=== PATIENT | male | born 1980 | race Caucasian/White ===

== ENCOUNTER 2022-12-31 15:00 | Outpatient (REF) | payer OTHER, SELFPAY ==
--- NOTE | ~2022-12-31 | XR_ITS ---
EXAMINATION: XR KNEE, LEFT CLINICAL INFORMATION: Left-sided Pain. COMPARISON: Left lower extremity 03/18/2008 TECHNIQUE: Four views of the left knee. FINDINGS: Bone mineral density is mildly heterogeneous involving the distal femur and the proximal tibia and fibula. No abnormal periosteal reaction. The femoral tibial and the patellofemoral joint is normal. There is no joint effusion. XR/XR knee LT 4V IMPRESSION: 1. No acute abnormality. 2. Heterogeneous bone mineral density involving the distal femur and proximal tibia and fibula. This is nonspecific. If pain persists consider follow-up bone scan and/or MRI.
--- NOTE | ~2022-12-31 | XR_ITS ---
EXAMINATION: XR HIP, LEFT CLINICAL INFORMATION: Pain COMPARISON: None available. TECHNIQUE: Two views of the left hip and one view of the pelvis. FINDINGS: Bone alignment is normal. No fracture or dislocation. Mild arthritis at both hip joints with small osteophytes. Normal soft tissues. XR/XR hip LT w PEL1V IMPRESSION: Mild left hip osteoarthritis.
[2022-12-31 16:39] LABS: Eosinophils Absolute Auto 0.1 X10*3/uL (0.0-0.4); Eosinophils Percent Auto 1.2 % (0-4); Hematocrit 26.8 % (42.0-52.0); PLT CLUMP 1; SCAN SMEAR FLAG 1
[2022-12-31 16:41] LABS: Basophils Absolute Auto 0.1 X10*3/uL (0.0-0.2); Basophils Percent Auto 1.7 % (0-2); Imm Gran Abs Auto 0.02 X10*3/uL (0.00-0.03); Imm Gran Pct Auto 0.3 % (0.0-0.4); Lymphocytes Absolute Auto 1.4 X10*3/uL (1.2-4.9); Lymphocytes Percent Auto 21.1 % (20-40); MANUAL DIFF FLAG SCAN; Mean Corpuscular HGB Conc 29.9 g/dl (31.0-36.0); Mean Corpuscular Hemoglobin 23.5 pg (27.0-33.0); Mean Corpuscular Volume 78.6 fL (80.0-98.0); Mean Platelet Volume 10.9 fL (9.4-12.4); Monocytes Absolute Auto 0.6 X10*3/uL (0.1-1.2); Monocytes Percent Auto 8.8 % (2-11); Neutrophils Absolute Auto 4.4 x10*3/uL (2.0-8.3); Neutrophils Percent Auto 66.9 % (45-73); Red Blood Count 3.41 X10*6/uL (4.60-5.80); Red Cell Distribution Width 17.5 % (11.0-16.0)
[2022-12-31 16:54] LABS: White Blood Count 6.6 X10*3/uL (4.8-10.8)
[2022-12-31 17:25] LABS: Platelet Count 75 X10*3/uL (160-400)
[2022-12-31 17:51] LABS: Alanine Aminotransferase 38 U/L (0-40); Albumin Level 3.4 g/dL (3.5-5.0); Alkaline Phosphatase 62 U/L (39-117); Anion Gap 21 (12-20); Aspartate Amino Transferase 109 U/L (5-37); Bilirubin Total 4.7 mg/dL (0.0-1.0); Blood Urea Nitrogen 11 mg/dL (9-16); Calcium 8.5 mg/dL (8.4-10.2); Carbon Dioxide 17 mmol/L (22-29); Chloride 98 mmol/L (96-108); Cholesterol 89 mg/dL; Estimated Glomerular Filt Rate > 60; Glucose Fasting 85 mg/dL (60-99); HDL Cholesterol 28 mg/dL; LDL Cholesterol Calculated 49 mg/dl; Potassium 3.7 mmol/L (3.3-5.1); Sodium 132 mmol/L (135-145); Total Protein 8.7 g/dL (6.5-8.0); Triglycerides 60 mg/dL
[2022-12-31 18:03] LABS: SLIDE REVIEW VERIFIED
[2022-12-31 18:22] LABS: Folate 9.7 ng/mL (> or = 4.0); TSH reflex Free T4 1.78 uIU/mL (0.32-4.0); Vitamin B12 > 2000 pg/mL (200-900); Vitamin D 25-OH Total 6.1 ng/mL (>30)
[2023-01-02 04:46] LABS: HBc Num1 0.13 S/CO (0.00-0.79); Hepatitis A Antibody IgM 0.22 Index (0-0.79); Hepatitis B Core Antibody Nonreactive (Nonreactive); Hepatitis B Surface Antigen Negative (Negative); ~HepC Num1 0.16 S/CO (0.00-0.79); ~Hepatitis A Antibody IgM Nonreactive (Nonreactive); ~Hepatitis B Surface Antibody NONREACTIVE (Nonreactive); ~Hepatitis C Antibody Nonreactive (Nonreactive)
[2023-01-06 13:34] LABS: Vitamin B1 <6 nmol/L (8-30)
== END 2022-12-31 15:01 | disposition home or self-care (01) ==
LOC: HO.HMGCX 15:00
PROVIDERS: PCP Internal Medicine; Visit Provider Internal Medicine
DX: M25.562 Pain in left knee (principal); M25.552 Pain in left hip; R26.81 Unsteadiness on feet; R17 Unspecified jaundice; R00.0 Tachycardia, unspecified; I10 Essential (primary) hypertension; G25.2 Other specified forms of tremor; F10.90 Alcohol use, unspecified, uncomplicated
CPT/HCPCS: 36415; 73502; 73564; 80053; 80061; 82306; 82607; 82746; 84425; 84443; 85025; 86704; 86706; 86709; 86803; 87340

== ENCOUNTER 2023-01-14 10:49 | Outpatient (REF) | payer OTHER, SELFPAY ==
--- NOTE | ~2023-01-14 | US_ITS ---
EXAMINATION: US ABDOMEN COMPLETE CLINICAL INFORMATION: Elevated liver enzymes. Alcoholism. Jaundice. Anemia.. COMPARISON: None available. TECHNIQUE: Real-time imaging of the abdominal viscera. FINDINGS: PANCREAS: Not well visualized ABDOMINAL AORTA: The proximal, mid, and distal segments are normal in caliber. INFERIOR VENA CAVA: Visualized portions are normal. LIVER: Liver echotexture is increased. The liver is slightly enlarged, right lobe measuring 18 cm in length. No focal hepatic lesion. There is no intrahepatic biliary duct dilatation seen. There is reversed hepatofugal flow seen in the main portal vein. GALLBLADDER: The gallbladder is normal in size. No gallstones. The gallbladder wall is minimally thickened measuring 4 mm. This may be related to liver disease. COMMON BILE DUCT: Normal in caliber measuring 0.3 cm in diameter. RIGHT KIDNEY: Normal. No hydronephrosis. No renal calculi or focal parenchymal lesions. The kidney measures 11 cm in maximum dimension. LEFT KIDNEY: Normal. No hydronephrosis. No renal calculi or focal parenchymal lesions. The kidney measures 11 cm in maximum dimension. SPLEEN: Normal. The spleen measures 10 cm in maximum dimension. There is reversed hepatofugal flow in the portal splenic confluence. FREE FLUID: None. US/US abdomen complete IMPRESSION: Echogenic liver. The liver is slightly enlarged. There is reversed hepatopedal pedal flow seen in the main portal vein and portal splenic confluence suggestive of portal hypertension. No biliary duct dilatation or focal liver lesion. No ascites. Mild gallbladder wall thickening. This may be related to liver disease. Limited visualization of the pancreas.
== END 2023-01-14 10:50 | disposition home or self-care (01) ==
LOC: HO.HMGCX 10:49
PROVIDERS: PCP Internal Medicine; Visit Provider Internal Medicine
DX: D50.9 Iron deficiency anemia, unspecified (principal); F10.90 Alcohol use, unspecified, uncomplicated; R17 Unspecified jaundice; R74.8 Abnormal levels of other serum enzymes
CPT/HCPCS: 76700

== ENCOUNTER 2023-01-27 18:22 | Emergency (ER) | payer OTHER, SELFPAY ==
--- NOTE | ~2023-01-27 | CT_ITS ---
EXAMINATION: CT HEAD AND FACIAL BONES WITHOUT CONTRAST CLINICAL INFORMATION: Status post fall with facial trauma. COMPARISON: None TECHNIQUE: Multiple axial images of the head and facial bones were obtained without the administration of intravenous contrast. Coronal and sagittal reformatted images were obtained. This CT examination was performed using dose optimization techniques as appropriate, variously including the following: *Automated exposure control *Adjustment of mA and/or kV according to patient size (this includes techniques or standardized protocols for targeted exams where dose is matched to indication/reason for exam; i.e. extremities or head) *Use of iterative reconstruction technique DLP: 713.60, 295.76 mGy-cm FINDINGS: Head: There is mild widening of the cortical sulci and associated ventriculomegaly. The lateral ventricles are symmetrical. The third and fourth ventricles are in their normal midline position. The basilar and prepontine cisterns are unremarkable. There is no acute intra or extracerebral abnormality. There is no mass effect or midline shift. Sections through the bony calvarium are unremarkable. Facial bones: The maxillary, ethmoid, sphenoid and frontal sinuses are clear. There are no air-fluid levels. The ostiomeatal complexes are patent and within normal limits. No osseous abnormalities are identified. The bony orbits and orbital contents are unremarkable. The visualized mastoid air cells are clear. Mild asymmetric mucosal thickening is seen in the right nasal canal. CT/CT head/brain wo IV con IMPRESSION: 1. No acute intracranial pathology. 2. No acute facial bone abnormality.
--- NOTE | ~2023-01-27 | CT_ITS ---
EXAMINATION: CT CERVICAL SPINE WITHOUT CONTRAST CLINICAL INFORMATION: Status post fall with neck pain. COMPARISON: None available. TECHNIQUE: Multiple axial images of the cervical spine were obtained without the demonstration of intravenous contrast. Coronal and sagittal or matted images were obtained. This CT examination was performed using dose optimization techniques as appropriate, variously including the following: *Automated exposure control *Adjustment of mA and/or kV according to patient size (this includes techniques or standardized protocols for targeted exams where dose is matched to indication/reason for exam; i.e. extremities or head) *Use of iterative reconstruction technique DLP: 410.98 mGy-cm FINDINGS: There is mild straightening of the normal cervical lordosis. Moderate degenerative disc disease is seen at C5-C6 and C6-C7 with mild disc space narrowing, moderate marginal osteophyte formation and bilateral neural foraminal narrowing. The odontoid process is intact with mild articulating degenerative changes. The facet joints are unremarkable. The spinous processes are intact. The cervical soft tissues are unremarkable. There is no lymphadenopathy. The thyroid gland is unremarkable. The visualized lung apices are clear. CT/CT cervical spine wo IV con IMPRESSION: 1. Mild straightening of the normal cervical lordosis may be secondary to positioning and/or muscle spasm. 2. Moderate degenerative disc disease at C5-C6 and C6-C7 without acute abnormality.
--- NOTE | ~2023-01-27 | CT_ITS ---
EXAMINATION: CT HEAD AND FACIAL BONES WITHOUT CONTRAST CLINICAL INFORMATION: Status post fall with facial trauma. COMPARISON: None TECHNIQUE: Multiple axial images of the head and facial bones were obtained without the administration of intravenous contrast. Coronal and sagittal reformatted images were obtained. This CT examination was performed using dose optimization techniques as appropriate, variously including the following: *Automated exposure control *Adjustment of mA and/or kV according to patient size (this includes techniques or standardized protocols for targeted exams where dose is matched to indication/reason for exam; i.e. extremities or head) *Use of iterative reconstruction technique DLP: 713.60, 295.76 mGy-cm FINDINGS: Head: There is mild widening of the cortical sulci and associated ventriculomegaly. The lateral ventricles are symmetrical. The third and fourth ventricles are in their normal midline position. The basilar and prepontine cisterns are unremarkable. There is no acute intra or extracerebral abnormality. There is no mass effect or midline shift. Sections through the bony calvarium are unremarkable. Facial bones: The maxillary, ethmoid, sphenoid and frontal sinuses are clear. There are no air-fluid levels. The ostiomeatal complexes are patent and within normal limits. No osseous abnormalities are identified. The bony orbits and orbital contents are unremarkable. The visualized mastoid air cells are clear. Mild asymmetric mucosal thickening is seen in the right nasal canal. CT/CT facial bones wo IV con IMPRESSION: 1. No acute intracranial pathology. 2. No acute facial bone abnormality.
--- NOTE | ~2023-01-27 | CT_ITS ---
EXAMINATION: CT CHEST, ABDOMEN, AND PELVIS WITHOUT CONTRAST CLINICAL INFORMATION: Fall. Question rib fractures and hip fracture. COMPARISON: None TECHNIQUE: Multidetector volumetric CT imaging of the chest, abdomen, and pelvis was obtained without oral or intravenous contrast. Axial MIP volume rendering provided. Sagittal and coronal reformatted images were obtained. This CT examination was performed using dose optimization techniques as appropriate, variously including the following: *Automated exposure control *Adjustment of mA and/or kV according to patient size (this includes techniques or standardized protocols for targeted exams where dose is matched to indication/reason for exam; i.e. extremities or head) *Use of iterative reconstruction technique DLP: 608 mGy-cm FINDINGS: Limited by lack of oral and intravenous contrast. LUNGS: The lungs are clear with no evidence of inflammation or nodules. MEDIASTINUM: 1.4 cm subcarinal lymph node (image 26, series 5). PLEURA: There is no pleural effusion. No pleural mass or thickening. CHEST WALL/AXILLA: Bilateral gynecomastia. No lymphadenopathy by size criteria. LIVER, GALLBLADDER, AND BILIARY TREE: Suspect mild fatty infiltration of liver. The liver appears unremarkable in size and shape. No focal hepatic lesion or biliary ductal dilatation is appreciated. Unremarkable appearance of the gallbladder. PANCREAS: Unremarkable SPLEEN: Unremarkable ADRENAL GLANDS: Unremarkable KIDNEYS AND URETERS: The kidneys appear unremarkable in size, shape, and attenuation. No hydronephrosis, hydroureter, or calculi seen. BLADDER: Unremarkable GASTROINTESTINAL TRACT/MESENTERY: The small and large bowel appear unremarkable. Nonspecific jaz mesentery. ABDOMINAL WALL: No significant hernia is appreciated. LYMPH NODES: No evidence of adenopathy by size criteria. VASCULAR: Question gastroesophageal varices, suboptimally evaluated on this noncontrast study. PELVIC VISCERA: Unremarkable OSSEOUS STRUCTURES: Unremarkable. CT/CT abdomen pelvis wo IV con IMPRESSION: No acute finding. No fracture or rib fracture identified. Question gastroesophageal varices, suboptimally evaluated on this noncontrast study. Bilateral gynecomastia. 1.4 cm subcarinal lymph node, nonspecific. Nonspecific jaz mesentery.
[2023-01-27 18:33] VITALS: BP 133/80; BP 162/98; PULSE 112; PULSE 116; RESP 20; TEMP 36.8; O2SAT 96; BMI 23.8
--- NOTE | 2023-01-27 18:41 | PC.NURSE ---
pt reports fall from standing and reports having trouble walking. pt was unable to get up. Bystander called EMS. Denies headstrike, denies LOC. No thinners.
--- NOTE | 2023-01-27 18:44 | ED.GENADULT ---
HPI - General Adult General Chief complaint: Fall Stated complaint: LLE/LUE/BACK PAIN,FALL, (AGE UNK) Time Seen by Provider: 01/27/23 18:33 Source: patient Mode of arrival: ambulatory Limitations: no limitations History of Present Illness HPI narrative: 42-year-old male with pmh of mutliple falls, chronic left sided pain/weakness, and chronic poor vision presents to the ED due to fall. patient states due to his chronic poor vision patient states he tripped and fell unto his face on the street. patient states due to chronic left sided pain/weakness it was hard for him to get back up which is his usual. patient denies having any chest pain, abdomina pain, or headache before falling. patient denies lost of consciousness. Patient states he was on the ground for 15 minutes Related Data Previous Rx's Medication Instructions Recorded metoprolol succinate 25 mg 12.5 mg PO DAILY #30 tabs 12/31/22 tablet,extended release 24 hr cholecalciferol (vitamin D3) 1,250 1,250 mcg PO QWEEK 3 months #13 01/04/23 mcg (50,000 unit) capsule caps ferrous fumarate 325 mg (106 mg 325 mg PO DAILY #90 tabs 01/04/23 iron) tablet naproxen 500 mg tablet 500 mg PO BID PRN pain 7 days #14 01/28/23 tabs Allergies Allergy/AdvReac Type Severity Reaction Status Date / Time SHRIMP Allergy Severe SWELLING Uncoded 12/31/22 14:13 shrimp Allergy Unknown facial Uncoded 12/31/22 14:13 swelling, rash Review of Systems Review of Systems: fall with headache and facial pain. Yes all other systems are reviewed and are negative [facility] Past Medical History Medical History (Updated 01/28/23 @ 01:15 by MARGARITA Ventura) Alcohol use disorder Coarse tremors Elevated liver enzymes Essential hypertension Jaundice Left hip pain Left knee pain Microcytic hypochromic anemia Polyarthralgia Serum total bilirubin elevated Sinus tachycardia Unstable gait Social History Social History Housing: Apartment Alcohol intake: current Patient Tobacco Use Status: Never used Tobacco Smoked in Last 30 Days: No e-Cigarette/Vaping Use: Never Used Use of substances other than those prescribed or required for medical reasons: No Advance Directives: No Advance Directives Information Provided: Yes service: No Current occupational status: unemployed Cognitive needs: No Hearing needs: No Vision needs: Yes Physical Exam ED Vital Signs: Vital Signs - 24 hr 01/27/23 18:33 01/27/23 23:26 Temperature 98.2 F 98.2 F Pulse Rate 116 H 115 H Respiratory Rate 20 17 Blood Pressure 133/80 127/75 Pulse Oximetry 96 95 Oxygen Delivery Method Room Air BMI result Body Mass Index 23.8 Const General: cooperative, healthy appearing, comfortable, no acute distress, well developed, alert, awake and Physically active Orientation/consciousness: oriented to person, oriented to place, oriented to time and patient oriented x3 HENPR Head: Yes normal to inspection, Yes No palpable skull fracture present, Yes normocephalic, Yes atraumatic and No abrasion Head images: 1. Positive for tenderness on palpation. 2. Positive for tenderness on palpation Eyes General: appearance normal, both eyes and all related structures Neck Neck: Yes normal visual inspection, Yes full ROM, Yes no lymphadenopathy, Yes no meningeal signs, Yes trachea midline, Yes supple, No anterior neck swelling and No tender Chest Chest palpation & inspection: normal inspection of the chest Chest/axillae images: 1. Positive for tenderness on palpation. Negative for crepitus or ecchymosis. Resp Effort & Inspection: normal respiratory effort and able to speak in complete sentences Auscultation: clear to auscultation bilaterally Cardio Jugular venous distension: no JVD Heart sounds: S1 normal heart sound present and S2 normal heart sound present GI Inspection: Yes normal to inspection and No abdominal wall ecchymosis Palpation (GI): Soft to palpation, not firm, nontender, no guarding and not rigid General: No CVA tenderness and Yes no CVA tenderness Back/Spine/Pelvis Back: no CVA tenderness, No CVA tenderness and No back tenderness Skin General skin exam: no rashes or lesions noted and elasticity normal Neuro Other: Negative for any neuro deficits General: oriented to person, oriented to place, oriented to time, patient oriented x3, gait normal, tone normal, moves all extremities, Normal light touch and pain sensation, no meningeal signs, no focal motor deficits and CN's II-XI intact bilaterally Extrem General: Yes normal to inspection and Yes full ROM Psych Appearance: grossly normal, well kempt and not disheveled Course Course Course Narrative: Fall was sent for imaging. Reevaluation(s) Reevaluation #1: Patient sleeping comfortably in bed. Images of CT scans normal. No need for medical workup. Patient mechanical fall. Patient to be discharged Time: 01:11 Medical Decision Making Medical Decision Making [facility] Narrative: 41-year-old male presents to the ED for fall. Patient has history of chronic poor vision which causes him to fall and chronic left-sided upper and lower weakness/pain. Patient is sent for imaging to rule out any traumatic injury. Negative any neuro deficits. Patient alert oriented x3. Patient is sleeping comfortable in bed. Differential Diagnosis Differential Diagnoses: The differential diagnosis associated with the presentation includes (Brain bleed, skull fracture, cervical spine fracture, facial fracture, hemothorax, pneumothorax, rib fractures, abdominal organ injury, hip fracture, hip dislocation, spinal fracture.) Admission/Observation Consideration of admission/observation: Escalation of care including admission/observation considered Independent Interpretation I performed an independent interpretation of an: Plain X-Ray and CT Scan Radiology Impression Discussion of test interpretation with radiology: I have reviewed the radiologist's reading. Prescription Management I considered prescription management with: Pain Medication Discharge Plan Discharge Clinical Impression: Fall, Contusion Patient Disposition: Home, Self-Care Instructions: Contusion in Adults (ED), Fall Prevention (ED) Additional Instructions: Please follow-up with your primary care provider. Return to the ED for any headache, dizziness, chest pain code is rhythmical rectal bleeding overwhelming mood, coughing up blood, bloody urine, or any other concerning symptoms. Prescriptions: New naproxen 500 mg tablet 500 mg PO BID PRN (Reason: pain) 7 Days Qty: 14 0RF No Action cholecalciferol (vitamin D3) 1,250 mcg (50,000 unit) capsule 1,250 mcg PO QWEEK 90 Days Qty: 13 0RF ferrous fumarate 325 mg (106 mg iron) tablet 325 mg PO DAILY Qty: 90 1RF metoprolol succinate 25 mg tablet extended release 24 hr 12.5 mg PO DAILY Qty: 30 2RF Stand Alone Forms: Work/School Release Print Language: Bermudian
[2023-01-27 23:26] VITALS: BP 127/75; PULSE 115; RESP 17; TEMP 36.8; O2SAT 95
== END 2023-01-28 02:06 | disposition home or self-care (01) ==
PROVIDERS: Emergency Provider Student in an Organized Health Care Education/Training Program
DX: S00.83XA Contusion of other part of head, initial encounter (principal); M54.2 Cervicalgia; R51.9 Headache, unspecified; R10.2 Pelvic and perineal pain; M54.6 Pain in thoracic spine; W01.10XA Fall on same level from slipping, tripping and stumbling with subsequent striking against unspecified object, initial encounter; Y93.9 Activity, unspecified; Y92.9 Unspecified place or not applicable; Y99.9 Unspecified external cause status
CPT/HCPCS: 70450; 70486; 71250; 72125; 74176; 99284

== ENCOUNTER 2023-02-12 18:49 | Emergency (ER) | payer OTHER, SELFPAY ==
--- NOTE | ~2023-02-12 | CT_ITS ---
EXAMINATION: CT HEAD WITHOUT CONTRAST CT CERVICAL SPINE WITHOUT CONTRAST CLINICAL INFORMATION: Fall. COMPARISON: CT head and cervical spine 01/27/2023. TECHNIQUE: Contiguous axial imaging was performed from the skull base to vertex without intravenous administration of contrast. Contiguous axial imaging was performed from the upper chest through the skull base without intravenous administration of contrast. Coronal and sagittal reformats were obtained at the acquisition workstation. This CT examination was performed using dose optimization techniques as appropriate, variously including the following: *Automated exposure control *Adjustment of mA and/or kV according to patient size (this includes techniques or standardized protocols for targeted exams where dose is matched to indication/reason for exam; i.e. extremities or head) *Use of iterative reconstruction technique DLP: 643 and 326 mGy-cm FINDINGS: Head: There is no evidence of acute intracranial hemorrhage or edematous territorial infarction. A few foci of hypoattenuation in the periventricular and deep white matter are consistent with mild microangiopathy. Fernandez-white matter differentiation is preserved. Proportional prominence of the ventricles and sulcal spaces. No evidence for obstructive hydrocephalus. No abnormal mass effect or midline shift. No extra-axial fluid collections. No acute soft tissue or osseous abnormalities. The mastoid air cells and paranasal sinuses are clear. Cervical Spine: Evaluation is limited by motion. The atlantooccipital and atlantoaxial articulations remain well aligned. Straightening of the normal cervical lordosis. Otherwise, there is anatomic alignment of the vertebral bodies and posterior elements. No evidence of acute fracture or subluxation. Mild to moderate multilevel cervical spondylosis. There is no prevertebral soft tissue swelling. The thyroid gland and remaining cervical soft tissues are normal in appearance. The lung apices demonstrate no abnormalities. CT/CT cervical spine wo IV con IMPRESSION: 1. No acute intracranial pathology. 2. Evaluation of the cervical spine is limited by motion. However, accounting for these limitations, no acute cervical fractures or malalignment are identified.
--- NOTE | 2023-02-12 18:58 | ECG_ITS ---
Test Reason : WEAKNESS Blood Pressure : / mmHG Vent. Rate : 082 BPM Atrial Rate : 082 BPM P-R Int : 160 ms QRS Dur : 084 ms QT Int : 378 ms P-R-T Axes : 053 022 027 degrees QTc Int : 441 ms Normal sinus rhythm Normal ECG When compared with ECG of 29-AUG-2018 18:24, No significant change was found Referred By: Cristina Sanders Electronically Signed By:MASON ALEMAN
--- NOTE | 2023-02-12 19:01 | ED.ALCOHOL ---
HPI - Alcohol General Chief Complaint: Fall Stated Complaint: Overdose Time Seen by Provider: 02/12/23 18:53 Source: patient Mode of arrival: ambulatory Limitations: no limitations History of Present Illness HPI narrative: Patient comes to the emergency room by ambulance. Bystanders found the patient on the floor, they gave him Narcan. Patient started waking up. Patient is awake, states that he did not use any drugs but admits to drinking alcohol heavily. Patient states that earlier today he fell, complaining of abrasions. Denies headache or neck pain. Related Data Previous Rx's Medication Instructions Recorded metoprolol succinate 25 mg 12.5 mg PO DAILY #30 tabs 12/31/22 tablet,extended release 24 hr cholecalciferol (vitamin D3) 1,250 1,250 mcg PO QWEEK 3 months #13 01/04/23 mcg (50,000 unit) capsule caps ferrous fumarate 325 mg (106 mg 325 mg PO DAILY #90 tabs 01/04/23 iron) tablet naproxen 500 mg tablet 500 mg PO BID PRN pain 7 days #14 01/28/23 tabs Allergies Allergy/AdvReac Type Severity Reaction Status Date / Time SHRIMP Allergy Severe SWELLING Uncoded 12/31/22 14:13 shrimp Allergy Unknown facial Uncoded 12/31/22 14:13 swelling, rash Review of Systems Review of Systems: Constitutional : No Weight loss, No Fever, No Chills, No Night Sweats, No Fatigue, No Malaise ENT/Mouth : No Hearing loss, No Ear Pain, No Nasal Congestion, No Sinus Pain, No Hoarseness, No sore throat, No Rhinorrhea, No Swallowing Difficulty Eyes: No Eye Pain, No Swelling, No Redness, No Foreign Body, No Discharge, No Vision Changes Cardiovascular : No Chest Pain, No SOB, No Dyspnea on Exertion, No Orthopnea, No Edema, No Palpitations Respiratory : No Cough, No Sputum, No Wheezing, No Smoke Exposure, No Dyspnea Gastrointestinal : No Nausea, No Vomiting, No Diarrhea, No Constipation, No abdominal Pain, No Hematochezia, No Melena Genitourinary : no irregular bleeding, No Dysuria, No Urinary Frequency, No Hematuria, No Urinary Incontinence, No Urgency, No Flank Pain, No Urinary Flow Changes, No Hesitancy Musculoskeletal : No joint pain, No Myalgias, No Joint Swelling Skin : Complaining of skin abrasions in the left elbow and left knee Neuro : No Weakness, No Numbness, No Paresthesias, No Loss of Consciousness, No Dizziness, No Headache Psych : No Anxiety/Panic, No Depression, No SI/HI/AH/VH, states he drank alcohol, denies drug use Heme/Lymph: No Bruising, No Bleeding,No Lymphadenopathy Endocrine : No Polyuria, No Polydipsia, No Temperature Intolerance PMF Past Medical History Medical History Alcohol use disorder Coarse tremors Elevated liver enzymes Essential hypertension Jaundice Left hip pain Left knee pain Microcytic hypochromic anemia Polyarthralgia Serum total bilirubin elevated Sinus tachycardia Unstable gait Social History Social History Housing: Apartment Alcohol intake: never Patient Tobacco Use Status: Never used Tobacco Smoked in Last 30 Days: No e-Cigarette/Vaping Use: Never Used Use of substances other than those prescribed or required for medical reasons: No Any prior treatment program specific to substance use: No Advance Directives: No Advance Directives Information Provided: Yes service: No Current occupational status: unemployed Cognitive needs: No Hearing needs: No Vision needs: Yes Physical Exam ED Vital Signs: Vital Signs - 24 hr 02/12/23 19:09 02/12/23 19:41 02/12/23 19:41 Temperature 98.6 F 98.6 F Pulse Rate 97 82 Respiratory Rate 18 18 Blood Pressure 138/90 H 116/63 Pulse Oximetry 100 Oxygen Delivery Method Room Air Room Air BMI result Body Mass Index 29.3 Const Other: Appearance: Alert. Oriented X3. No acute distress. Eyes: Pupils equal, round and reactive to light. ENT: Pharynx normal. Neck: Normal inspection. Neck supple. No lymph nodes noted. No crepitus CVS: Normal heart rate and rhythm. Pulses normal. Normal S1 and S2 Respiratory: No respiratory distress. Breath sounds normal. No Wheezing. No rales Abdomen: Soft and nontender. No rigidity. No distention. Skin: Skin warm and dry. Superficial abrasions to knees and elbows Extremities: No lower extremity edema. No Lacerations. No Rash Neuro: Oriented X 3. No motor deficit. No sensory deficit. Moving all extremities. No slurred speech. CN 2 through 12 grossly intact Psych: calm, cooperative, normal affect Course Course Course Narrative: -I was informed by the patient's nurse that when patient was brought to his room, patient told his nurse that he wanted to a hold of a knife and stab himself in the chest Medical Decision Making Medical Decision Making [facility] Narrative: -earlier today, patient said that he wants to stab himself in the chest. Patient is intoxicated, patient is on a [address]. To be reassessed when patient is clinically sober -CT scan of the head and neck do not show any acute abnormality -I discussed with the patient that his hemoglobin has been dropping gradually over the last few years. In 2018, hemoglobin was 13.2, in December of this year it was 8.0, today 7.9. Patient denies any black stools or rectal bleeding. Denies fatigue or shortness of breath with exertion. Patient denies vomiting blood. I discussed with the patient that he may have a bleeding ulcer, esophageal versus? Or a GI bleed, malignancy? Patient states that he absolutely refuses to have a digital rectal exam. Patient does not want to be treated for anemia. Patient states that he will discuss this further with his primary care physician and would be willing to get a colonoscopy. But this time, patient does not want to be treated -overall, patient is not symptomatic from the anemia. At this time, blood transfusion is not indicated. Also patient declined any further management or treatment for the anemia. -patient waiting to be seen by the care team -physician observation started at 21:10 Lab Data [facility] Lab Attestation statement: I reviewed the patient's lab results. 02/12/23 20:26 02/12/23 20:26 Labs: Lab Results 02/12/23 02/12/23 02/12/23 Range/Units 20:26 20:26 20:26 WBC 5.0 (4.8-10.8) X10*3/uL RBC 3.43 L (4.60-5.80) X10*6/uL Hgb 7.9 L (14.0-18.0) g/dl Hct 25.7 L (42.0-52.0) % MCV 74.9 L (80.0-98.0) fL MCH 23.0 L (27.0-33.0) pg MCHC 30.7 L (31.0-36.0) g/dl RDW 22.0 H (11.0-16.0) % Plt Count 121 L D (160-400) X10*3/uL MPV 8.7 L (9.4-12.4) fL Immature Gran % (Auto) 0.2 (0.0-0.4) % Neut % (Auto) 24.3 L (45-73) % Lymph % (Auto) 59.1 H (20-40) % [place] % (Auto) 10.4 (2-11) % Eos % (Auto) 3.6 (0-4) % Baso % (Auto) 2.4 H (0-2) % Lymph # (Auto) 3.0 (1.2-4.9) X10*3/uL [place] # (Auto) 0.5 (0.1-1.2) X10*3/uL Eos # (Auto) 0.2 (0.0-0.4) X10*3/uL Baso # (Auto) 0.1 (0.0-0.2) X10*3/uL Abs Immat Gran (auto) 0.01 (0.00-0.03) X10*3/uL Absolute Neuts (auto) 1.2 L (2.0-8.3) x10*3/uL Absolute Nucleated RBC 0.000 (0.0-0.012) X10*3/uL Nucleated RBC % (auto) 0.0 (0.0-0.2) /100WBC PT 19.6 H (10.0-13.1) SEC INR 1.7 H (0.9-1.1) Sodium 143 (135-145) mmol/L Potassium 3.5 (3.3-5.1) mmol/L Chloride 111 H (96-108) mmol/L Carbon Dioxide 25 (22-29) mmol/L Anion Gap 11 L (12-20) BUN 4 L (9-16) mg/dL Creatinine 0.79 (0.5-1.4) mg/dL Estim Creat Clear Calc 105.3 Estimated GFR > 60 Random Glucose 118 H (60-115) mg/dL Calcium 8.3 L (8.4-10.2) mg/dL Magnesium 1.6 (1.6-2.6) mg/dL Total Bilirubin 1.7 H (0.0-1.0) mg/dL Direct Bilirubin 0.8 H (0.0-0.5) mg/dL AST 90 H (5-37) U/L ALT 40 (0-40) U/L Alkaline Phosphatase 107 (39-117) U/L Troponin I High Sens (<3.5-35.0) ng/L Total Protein 8.1 H (6.5-8.0) g/dL Albumin 3.0 L (3.5-5.0) g/dL Ethyl Alcohol mg/dL 02/12/23 02/12/23 Range/Units 20:26 20:26 WBC (4.8-10.8) X10*3/uL RBC (4.60-5.80) X10*6/uL Hgb (14.0-18.0) g/dl Hct (42.0-52.0) % MCV (80.0-98.0) fL MCH (27.0-33.0) pg MCHC (31.0-36.0) g/dl RDW (11.0-16.0) % Plt Count (160-400) X10*3/uL MPV (9.4-12.4) fL Immature Gran % (Auto) (0.0-0.4) % Neut % (Auto) (45-73) % Lymph % (Auto) (20-40) % [place] % (Auto) (2-11) % Eos % (Auto) (0-4) % Baso % (Auto) (0-2) % Lymph # (Auto) (1.2-4.9) X10*3/uL [place] # (Auto) (0.1-1.2) X10*3/uL Eos # (Auto) (0.0-0.4) X10*3/uL Baso # (Auto) (0.0-0.2) X10*3/uL Abs Immat Gran (auto) (0.00-0.03) X10*3/uL Absolute Neuts (auto) (2.0-8.3) x10*3/uL Absolute Nucleated RBC (0.0-0.012) X10*3/uL Nucleated RBC % (auto) (0.0-0.2) /100WBC PT (10.0-13.1) SEC INR (0.9-1.1) Sodium (135-145) mmol/L Potassium (3.3-5.1) mmol/L Chloride (96-108) mmol/L Carbon Dioxide (22-29) mmol/L Anion Gap (12-20) BUN (9-16) mg/dL Creatinine (0.5-1.4) mg/dL Estim Creat Clear Calc Estimated GFR Random Glucose (60-115) mg/dL Calcium (8.4-10.2) mg/dL Magnesium (1.6-2.6) mg/dL Total Bilirubin (0.0-1.0) mg/dL Direct Bilirubin (0.0-0.5) mg/dL AST (5-37) U/L ALT (0-40) U/L Alkaline Phosphatase (39-117) U/L Troponin I High Sens 4.4 (<3.5-35.0) ng/L Total Protein (6.5-8.0) g/dL Albumin (3.5-5.0) g/dL Ethyl Alcohol 415 H* mg/dL Discharge Plan Discharge Clinical Impression: Alcohol intoxication, Suicidal ideation, Anemia Patient Disposition: Still a Patient Prescriptions: No Action cholecalciferol (vitamin D3) 1,250 mcg (50,000 unit) capsule 1,250 mcg PO QWEEK 90 Days Qty: 13 0RF ferrous fumarate 325 mg (106 mg iron) tablet 325 mg PO DAILY Qty: 90 1RF naproxen 500 mg tablet 500 mg PO BID PRN (Reason: pain) 7 Days Qty: 14 0RF metoprolol succinate 25 mg tablet extended release 24 hr 12.5 mg PO DAILY Qty: 30 2RF
[2023-02-12 19:09] VITALS: BP 138/90; BP 140/100; PULSE 84; PULSE 97; RESP 18; TEMP 37; O2SAT 100; O2SAT 98; BMI 29.3
[2023-02-12 19:41] VITALS: BP 116/63; PULSE 82; RESP 18; TEMP 37
--- NOTE | 2023-02-12 19:51 | PC.NURSE ---
Informed MD that pt is SI without a plan. pt states he is depressed and feels bad about how his family looks down at him. How they are so disappointed they are of him.
--- NOTE | 2023-02-12 19:53 | PC.NURSE ---
Pt at moment contracts for safety. Pt is close to the nurses station for close observation. Pt's items locked in locker for safety. Pt at the moment states he contracts for safety.
[2023-02-12 20:30] LABS: MANUAL DIFF FLAG NO
[2023-02-12 20:31] LABS: Basophils Absolute Auto 0.1 X10*3/uL (0.0-0.2); Basophils Percent Auto 2.4 % (0-2); Eosinophils Absolute Auto 0.2 X10*3/uL (0.0-0.4); Eosinophils Percent Auto 3.6 % (0-4); Hematocrit 25.7 % (42.0-52.0); Hemoglobin 7.9 g/dl (14.0-18.0); Imm Gran Abs Auto 0.01 X10*3/uL (0.00-0.03); Imm Gran Pct Auto 0.2 % (0.0-0.4); Lymphocytes Percent Auto 59.1 % (20-40); Mean Corpuscular HGB Conc 30.7 g/dl (31.0-36.0); Mean Corpuscular Volume 74.9 fL (80.0-98.0); Mean Platelet Volume 8.7 fL (9.4-12.4); Monocytes Absolute Auto 0.5 X10*3/uL (0.1-1.2); Monocytes Percent Auto 10.4 % (2-11); Neutrophils Absolute Auto 1.2 x10*3/uL (2.0-8.3); Neutrophils Percent Auto 24.3 % (45-73); Platelet Count 121 X10*3/uL (160-400); Red Blood Count 3.43 X10*6/uL (4.60-5.80)
[2023-02-12 20:37] LABS: INTERNATIONAL NORM RATIO 1.7 (0.9-1.1); Prothrombin Time 19.6 SEC (10.0-13.1)
[2023-02-12 20:49] LABS: Ethanol 415 mg/dL
[2023-02-12 20:51] LABS: Alanine Aminotransferase 40 U/L (0-40); Alkaline Phosphatase 107 U/L (39-117); Anion Gap 11 (12-20); Aspartate Amino Transferase 90 U/L (5-37); Bilirubin Direct 0.8 mg/dL (0.0-0.5); Bilirubin Total 1.7 mg/dL (0.0-1.0); Blood Urea Nitrogen 4 mg/dL (9-16); Calcium 8.3 mg/dL (8.4-10.2); Carbon Dioxide 25 mmol/L (22-29); Chloride 111 mmol/L (96-108); Creatinine Clr Calc Pharmacy 105.3; Estimated Glomerular Filt Rate > 60; Glucose Random 118 mg/dL (60-115); Magnesium 1.6 mg/dL (1.6-2.6); Potassium 3.5 mmol/L (3.3-5.1); Sodium 143 mmol/L (135-145); Total Protein 8.1 g/dL (6.5-8.0)
[2023-02-12 20:59] LABS: Troponin-I High Sensitivity 4.4 ng/L (<3.5-35.0)
[2023-02-12 21:35] LABS: Appearance Urine Clear; Color Urine Yellow; Glucose Urine UA Negative (Negative); Leukocyte Esterase Urine Negative (Negative); Nitrite Urine Negative (Negative); Specific Gravity - Urine <= 1.005 (1.005-1.025); Urine Blood Negative (Negative); Urine Ketones Negative (Negative); Urine Protein Negative (Neg-Trace)
[2023-02-12 21:40] LABS: Amphetamine Screen Urine Not Detected (Not Detect); Barbiturates, Urine Not Detected (Not Detect); Benzodiazepines Screen Urine Not Detected (Not Detect); Cannabinoid Screen Urine Not Detected (Not Detect); Cocaine Screen Urine Not Detected (Not Detect); Fentanyl, urine Not Detected (Not Detect); Opiate Screen Urine Not Detected (Not Detect); Phencyclidine Screen Urine Not Detected (Not Detect)
[2023-02-13 01:04] VITALS: BP 115/63; PULSE 75; RESP 18; TEMP 36.6; O2SAT 99
[2023-02-13 03:44] VITALS: RESP 18
[2023-02-13 05:45] VITALS: BP 120/74; PULSE 74; RESP 17; O2SAT 97
--- NOTE | 2023-02-13 08:01 | PC.NURSE ---
assumed care of this pt at 0800. pt previously in ed 15. pt brought over to POD via w/c by security. pt now in POD rm 1. pt's belongings in locker 1.
[2023-02-13 19:33] LABS: COVID-19 Test Negative (Negative); IDNOW Serial# 08D9AD1C
[2023-02-13 20:46] VITALS: BP 142/76; PULSE 85; RESP 20; TEMP 37.6; O2SAT 99
== END 2023-02-13 22:57 | disposition home or self-care (01) ==
PROVIDERS: Emergency Provider Emergency Medicine
DX: F10.129 Alcohol abuse with intoxication, unspecified (principal); R45.851 Suicidal ideations; D64.9 Anemia, unspecified; Z20.822 Contact with and (suspected) exposure to COVID-19
CPT/HCPCS: 36415; 70450; 72125; 80048; 80076; 80307; 81003; 83735; 84484; 85025; 85610; 87635; 93005; 99285; S9485

== ENCOUNTER 2023-12-24 08:20 | Outpatient (AMB) | payer OTHER, SELFPAY ==
--- NOTE | 2023-12-24 08:27 | A.OFFPC_ITS ---
Vital Signs 12/24/23 08:33 Height 5 ft 3 in Weight 144 lb BMI 25.5 BP 124/70 Blood Pressure Location Lt brachial Position Sitting Pulse 110 H Pulse Source Pulse Oximeter Pulse Oximetry (%) 97 Oxygen Delivery Method Room Air Intake Visit Reasons: Annual PE Intake Note: Pt is here today for his PE: Pt requesting referral for a INTERNATIONAL TRAVEL CONSULTANT and program group for his ETOH addiction Allergies SHRIMP Allergy (Severe, Uncoded 12/24/23 09:02) SWELLING shrimp Allergy (Unknown, Uncoded 12/24/23 09:02) facial swelling, rash Medication List - Last Reconciled 12/24/23 by Yissel Johnson MD No Known Home Meds Tobacco use date assessed: 12/31/22 Dental Screening Dental Screen Date: 12/24/23 Did you have a dental visit in the last 12 months?: No Was dental information given to patient?: No HPI Annual PE HPI Details 43-year-old male with history of alcohol abuse, microcytic hypochromic anemia, here today for a physical exam. He states that he has cut back on his alcohol intake, nowdrinks at least 2-3 bottles of Natty Daddy 2 to 3 times a week whenever he is able to afford it. He has been seeing a therapist, and was referred to a program to help with his alcoholism but patient did not want to stay as he states that he was mixed in with a group of drug addicts. [facility] Medical History (Updated 12/30/23 @ 02:33 by Yissel Johnson MD) Anxiety and depression Alcoholism Serum total bilirubin elevated Elevated liver enzymes Microcytic hypochromic anemia Coarse tremors Polyarthralgia Essential hypertension Surgical History (Updated 12/30/23 @ 01:46 by Yissel Johnson MD) No pertinent past surgical history Family History (Updated 12/30/23 @ 01:49 by Yissel Johnson MD) Sister Diabetes mellitus Social History Housing: Apartment Alcohol intake: never Patient Tobacco Use Status: Never used Tobacco e-Cigarette/Vaping Use: Never Used service: No Current occupational status: unemployed Cognitive needs: No Hearing needs: No Vision needs: Yes Questionnaire PHQ-9 Over the last 2 weeks, how often have you been bothered by any of the following problems? 1. Little interest or pleasure in doing things: several days 2. Feeling down, depressed, or hopeless: several days 3. Trouble falling or staying asleep, or sleeping too much: not at all 4. Feeling tired or having little energy: not at all 5. Poor appetite or overeating: not at all 6. Feeling bad about yourself - or that you are a failure or have let yourself or your family down: several days 7. Trouble concentrating on things, such as reading the newspaper or watching television: not at all 8. Moving or speaking so slowly that other people could have noticed. Or the opposite - being so fidgety or restless that you have been moving around a lot more than usual: not at all 9. Thoughts that you would be better off or of hurting yourself in some way: not at all Total score: 3 Depression Screening Interpretation: Positive (Currently sees therapist at [facility]) Depression Screening Follow-up: Existing condition, In treatment and Community Mental Health Worker F/U Depression Screening Done: Yes 48752 - PHQ-9 Billing: Yes Source: Developed by Drs. Osbaldo Dumont, Berenice Bowles, Ad Acosta and colleagues, with an educational ailyn from [employer]. Thrive Questionnaire Date Thrive assessed: 12/24/23 I am a: Patient What is your living situation today?: I have a steady place to live Within the past 12 months, did the food you bought not last and you didn't have the money to get more?: Never true Within the past 12 months, did you worry whether your food would run out before you got money to buy more?: Never true Do you have trouble paying for medicines?: No Do you have trouble getting transportation to medical appointments?: Yes Do you have trouble paying your heating and electricity bill?: No Do you have trouble taking care of your child, family member or friend?: No Do you have trouble with day-to-day activities such as bathing, preparing meals, shopping, managing finances, etc.?: Yes Are you currently unemployed and looking for a job?: No Are you interested in more education?: No Please select the resources that you would like help with: Transportation and Daily support THRIVE Score: 1 AUDIT C Alcohol Use Questionnaire (AUDIT-C) 1. How often do you have a drink containing alcohol?: 4 or more times a week 2. How many drinks containing alcohol do you have on a typical day when you are drinking?: 5 or 6 3. How often do you have six or more drinks on one occasion?: Daily or almost daily Total Score: 10 Score Reviewed/Action Taken: Yes (Referred to irrigation specialist) LEE-7 AMB Questionnaire LEE-7 Date LEE - 7 assessed: 12/24/23 Feeling nervous, anxious, or on edge: 1 = Several days Not being able to stop or control worryin = Several days Worrying too much about different things: 1 = Several days Trouble relaxin = Several days Being so restless that it is hard to sit still: 0 = Not at all Becoming easily annoyed or irritable: 2 = More than half the days Feeling afraid as if something awful might happen: 1 = Several days Total LEE-7 score (0-4 normal; 5-9 mild; 10-14 moderate; 15-21 severe): 7 Source: Developed by Drs. Osbaldo Dumont, Berenice Bowles, Ad Acosta and colleagues, with an educational ailyn from [employer]. LEE-7 Assessment Billing LEE-7 Assessment Tool: LEE-7 Assessment 83895 Review of Systems Const Denies fever(s), Reports frequent falls, Denies headache(s), Reports malaise and Reports poor appetite Eyes Reports no additional complaints ENT Denies dysphagia, Denies ear discharge, Denies headache(s) and Denies mouth lesions Card Denies chest pain, Reports rapid heart rate, Denies edema, Denies irregular heart rhythm, Reports lightheadedness (Occasional) and Reports dyspnea on exertion Resp Denies cough and Reports dyspnea on exertion GI Denies melena, Reports bloating, Denies constipation, Denies dysphagia, Denies heartburn and Denies diarrhea Reports no additional complaints Musc Reports abnormal gait, Reports myalgias, Reports arthralgias, Denies joint swelling and Reports stiffness Skin/Breast Denies rash Neuro Reports abnormal gait, Reports frequent falls and Denies headache(s) Psych Reports abnormal sleep pattern, Reports anxiety, Reports difficulty concentrating, Reports panic attacks, Denies homicidal ideation and Denies suicidal ideation Endo Reports no additional complaints [place]/Lymph Denies easy bleeding and Denies easy bruising Aller/Immun Reports no additional complaints Physical exam (Primary Care) Vital Signs: Last Vital Signs Pulse 110 H 12/24/23 08:33 BP 124/70 12/24/23 08:33 Pulse Ox 97 12/24/23 08:33 Oxygen Delivery Method Room Air 12/24/23 08:33 BMI result Body Mass Index 25.5 Tobacco/Smoking Status: Tobacco use Status Tobacco use date assessed 12/31/22 12/24/23 08:30 Patient Tobacco Use Status Never used Tobacco 12/24/23 08:30 e-Cigarette/Vaping Use Never Used 12/24/23 08:30 PHQ-9: PHQ-9 Score PHQ-9: Total score 3 12/24/23 09:58 Depression Screening Interpretation: Positive (Currently sees therapist at [facility]) Depression Screening Follow-up: Existing condition, In treatment and Community Mental Health Worker F/U Thrive Assessment: Date of Thrive Assessment Date Thrive assessed 12/24/23 12/24/23 08:55 Const Other: Awake alert oriented x3, accompanied by sister on this visit, ambulatory with date of cane General: no acute distress and alert Nutritional Appearance: average body habitus Orientation/consciousness: oriented to person and oriented to place [facility] Head: Yes normocephalic and Yes atraumatic Ears: hearing grossly normal bilaterally, external ears normal, TM's normal bilaterally and EAC's normal General nose exam: Normal external nose present and No nasal discharge present Face and sinus: Yes sinuses nontender and Yes face symmetric Mouth: Normal oral and palatal mucosa present, lip normal, tongue normal, oropharynx normal and moist mucous membranes Eyes Conjunctivae: conjunctival abnormal (Pale palpebral conjunctiva bilateral) and other Neck Neck: Yes full ROM, Yes no lymphadenopathy and Yes supple Thyroid: Thyroid normal Chest Chest palpation & inspection: normal inspection of the chest Resp Other: Clear to auscultation bilaterally Cardio Other: Tachycardic GI Other: Obese with slightly bloated abdomen, normal bowel sounds, nontender to palpation, no mass palpated Palpation (GI): Soft to palpation, nontender, no guarding and no masses Auscultation: Hyperactive bowel sounds present Back/Spine/Pelvis Back: back tenderness (Paraspinal muscles in the lumbar area, negative straight leg raising sign) Thoracic/Lumbar Spine: straight leg raise negative bilaterally Skin General skin exam: no rashes or lesions noted, no jaundice, no petechiae and no purpura Neuro General: oriented to person, oriented to place and no focal motor deficits Extrem General: Yes full ROM, Yes no joint enlargement, Yes no clubbing, cyanosis or edema and Yes no pedal edema Psych Appearance: grossly normal Mental Status: mental status grossly normal Speech and movement: Normal speech and movement present Attitude: cooperative Assessment and Plan Assessment & Plan (1) Annual visit for general adult medical examination with abnormal findings: Code(s): Z00.01 - Encounter for general adult medical examination with abnormal findings Plan: Will check appropriate labs. Strongly encouraged to abstain from any alcohol intake, referred to irrigation specialist done. Recommended dental visit every 6 months and regular eye exams, at least every 2 years. Instructed to do self- testicular exam check for any mass. Patient however refusing to get any vaccination (2) Alcoholism: Code(s): F10.20 - Alcohol dependence, uncomplicated Plan: Addiction medicine referral to [facility], Comprehensive metabolic panel vitamin B1, vitamin B12 folic acid and vitamin-D level ordered. (3) Microcytic hypochromic anemia: Code(s): D50.9 - Iron deficiency anemia, unspecified Plan: CBC, iron profile ordered (4) Elevated liver enzymes: Code(s): R74.8 - Abnormal levels of other serum enzymes Plan: Strongly encouraged to abstain from any alcohol intake (5) Anxiety and depression: Code(s): F41.9 - Anxiety disorder, unspecified; F32.A - Depression, unspecified Plan: Currently being seen by therapist at [facility], referred to our mental health counselor, Divya, for assistance in getting in to see a psychiatrist Orders: Orders Comprehensive [place]. Panel Fast 12/24/23 D50.9 - Iron deficiency anemia, unspecified, F10.20 - Alcohol dependence, uncomplicated, F10.90 - Alcohol use, unspecified, uncomplicated, R17 - Unspecified jaundice, R74.8 - Abnormal levels of other serum enzymes, Z00.01 - Encounter for general adult medical examination with abnormal findings Vitamin D 25-OH Total 12/24/23 D50.9 - Iron deficiency anemia, unspecified, F10.20 - Alcohol dependence, uncomplicated, F10.90 - Alcohol use, unspecified, uncomplicated, R17 - Unspecified jaundice, R74.8 - Abnormal levels of other serum enzymes, Z00.01 - Encounter for general adult medical examination with abnormal findings Vitamin B1 12/24/23 D50.9 - Iron deficiency anemia, unspecified, F10.20 - Alcohol dependence, uncomplicated, F10.90 - Alcohol use, unspecified, uncomplicated, R17 - Unspecified jaundice, R74.8 - Abnormal levels of other serum enzymes, Z00.01 - Encounter for general adult medical examination with abnormal findings Vitamin B12 and Folate 12/24/23 D50.9 - Iron deficiency anemia, unspecified, F10.20 - Alcohol dependence, uncomplicated, F10.90 - Alcohol use, unspecified, uncomplicated, R17 - Unspecified jaundice, R74.8 - Abnormal levels of other serum enzymes, Z00.01 - Encounter for general adult medical examination with abnormal findings Complete Blood Count Auto Diff 12/24/23 D50.9 - Iron deficiency anemia, unspecified, F10.20 - Alcohol dependence, uncomplicated, F10.90 - Alcohol use, unspecified, uncomplicated, R17 - Unspecified jaundice, R74.8 - Abnormal levels of other serum enzymes, Z00.01 - Encounter for general adult medical examination with abnormal findings IRON PROFILE 12/24/23 D50.9 - Iron deficiency anemia, unspecified, F10.20 - Alcohol dependence, uncomplicated, F10.90 - Alcohol use, unspecified, uncomplicated, R17 - Unspecified jaundice, R74.8 - Abnormal levels of other serum enzymes, Z00.01 - Encounter for general adult medical examination with abnormal findings Lipid Panel 12/24/23 D50.9 - Iron deficiency anemia, unspecified, F10.20 - Alcohol dependence, uncomplicated, F10.90 - Alcohol use, unspecified, uncomplicated, R17 - Unspecified jaundice, R74.8 - Abnormal levels of other serum enzymes, Z00.01 - Encounter for general adult medical examination with abnormal findings Coding Level of Care Code Est Pt Prev Care 40-64y(57827) Diagnoses Annual visit for general adult medical examination with abnormal findings Z00.01 Alcoholism F10.20 Microcytic hypochromic anemia D50.9 Elevated liver enzymes R74.8 Anxiety and depression F41.9; F32.A Additional Codes LEE-7 Assessment Billing - LEE-7 Assessment Tool: LEE-7 Assessment [id number] ([id number])
[2023-12-24 08:33] VITALS: BP 124/70; PULSE 110; O2SAT 97; BMI 25.5
== END 2023-12-24 11:01 | disposition home or self-care (01) ==
PROVIDERS: Visit Provider Internal Medicine
DX: Z00.00 Encounter for general adult medical examination without abnormal findings (principal); F10.20 Alcohol dependence, uncomplicated; D50.9 Iron deficiency anemia, unspecified; R74.8 Abnormal levels of other serum enzymes; F41.9 Anxiety disorder, unspecified; F32.A Depression, unspecified
CPT/HCPCS: 99396

== ENCOUNTER 2023-12-24 09:55 | Outpatient (REF) | payer OTHER, SELFPAY ==
[2023-12-24 12:51] LABS: MANUAL DIFF FLAG NO
[2023-12-24 12:57] LABS: Basophils Absolute Auto 0.1 X10*3/uL (0.0-0.2); Basophils Percent Auto 2.3 % (0-2); Eosinophils Absolute Auto 0.2 X10*3/uL (0.0-0.4); Eosinophils Percent Auto 2.7 % (0-4); Hematocrit 29.8 % (42.0-52.0); Hemoglobin 9.1 g/dl (14.0-18.0); Imm Gran Abs Auto 0.01 X10*3/uL (0.00-0.03); Imm Gran Pct Auto 0.2 % (0.0-0.4); Lymphocytes Absolute Auto 3.5 X10*3/uL (1.2-4.9); Lymphocytes Percent Auto 57.2 % (20-40); Mean Corpuscular HGB Conc 30.5 g/dl (31.0-36.0); Mean Corpuscular Hemoglobin 24.3 pg (27.0-33.0); Mean Corpuscular Volume 79.7 fL (80.0-98.0); Mean Platelet Volume 9.8 fL (9.4-12.4); Monocytes Absolute Auto 0.5 X10*3/uL (0.1-1.2); Monocytes Percent Auto 8.1 % (2-11); Neutrophils Absolute Auto 1.8 x10*3/uL (2.0-8.3); Neutrophils Percent Auto 29.5 % (45-73); Platelet Count 93 X10*3/uL (160-400); Red Blood Count 3.74 X10*6/uL (4.60-5.80); Red Cell Distribution Width 22.3 % (11.0-16.0); White Blood Count 6.2 X10*3/uL (4.8-10.8)
[2023-12-24 13:41] LABS: Alanine Aminotransferase 44 U/L (0-40); Albumin Level 3.1 g/dL (3.5-5.0); Alkaline Phosphatase 105 U/L (39-117); Anion Gap 12 (12-20); Aspartate Amino Transferase 134 U/L (5-37); Bilirubin Total 1.8 mg/dL (0.0-1.0); Blood Urea Nitrogen 7 mg/dL (9-16); Calcium 8.4 mg/dL (8.4-10.2); Carbon Dioxide 26 mmol/L (22-29); Chloride 107 mmol/L (96-108); Cholesterol 106 mg/dL (<200); Estimated Glomerular Filt Rate > 60; Glucose Fasting 99 mg/dL (60-99); HDL Cholesterol 40 mg/dL (>40); Iron 30 mcg/dL (45-160); LDL Cholesterol Calculated 56 mg/dL (<100); Percent Iron Saturation 9 % (15-50); Potassium 3.4 mmol/L (3.3-5.1); Sodium 142 mmol/L (135-145); Total Iron Binding Capacity 326 mcg/dL (228-428); Total Protein 8.6 g/dL (6.5-8.0); Triglycerides 51 mg/dL (<150); Unsaturated Iron Binding 296 ug/dL; Vitamin D 25-OH Total 6.3 ng/mL (>30)
[2023-12-24 13:52] LABS: Folate 6.7 ng/mL (> or = 4.0); Vitamin B12 1886 pg/mL (200-900)
[2023-12-29 10:53] LABS: Vitamin B1 6 nmol/L (8-30)
== END 2023-12-24 09:56 | disposition home or self-care (01) ==
LOC: HO.HMGCLDS 09:55
PROVIDERS: PCP Internal Medicine; Visit Provider Internal Medicine
DX: Z00.01 Encounter for general adult medical examination with abnormal findings (principal); F10.20 Alcohol dependence, uncomplicated; D50.9 Iron deficiency anemia, unspecified; R17 Unspecified jaundice; R74.8 Abnormal levels of other serum enzymes
CPT/HCPCS: 36415; 80053; 80061; 82306; 82607; 82746; 83540; 84425; 85025

== ENCOUNTER 2024-04-29 18:35 | Emergency (ER) | payer OTHER, SELFPAY ==
--- NOTE | ~2024-04-29 | XR_ITS ---
EXAMINATION: XR LUMBOSACRAL SPINE CLINICAL INFORMATION: Lower back pain COMPARISON: None available. TECHNIQUE: Three views of the lumbosacral spine. FINDINGS: The vertebral bodies and posterior elements are notable for generalized endplate spurring. No deformity. No focal bony lesion. The disc spaces are preserved and the vertebral alignment is normal. The paraspinal soft tissues are normal. XR/XR lumbar spine 2-3V IMPRESSION: No acute findings. Mild degenerative disc disease as above.
[2024-04-29 18:42] VITALS: BP 136/90; PULSE 82; O2SAT 98
--- NOTE | 2024-04-29 18:52 | ED_ITS ---
HPI - Back Pain/Injury General Chief Complaint: General Medical Stated Complaint: Back pain Time Seen by Provider: 04/29/24 19:44 Source: patient Mode of arrival: ambulatory Limitations: no limitations History of Present Illness ED Provider: Dr. Russ Renteria HPI Narrative: 44 year old male with multiple complaints past medical history of microcytic anemia polyarthralgia hypertension alcoholism anxiety and depression who presents emergency department complaining of left lower back pain rating down his leg with multiple falls patient admits to drinking and is very intoxicated on arrival MD elicited complaint: back pain Related Data Previous Rx's ?Medication ?Instructions ?Recorded cholecalciferol (vitamin D3) 1,250 1,250 mcg PO QWEEK 3 months #13 12/30/23 mcg (50,000 unit) capsule caps ferrous sulfate 325 mg (65 mg 325 mg PO DAILY #90 tabs 12/30/23 iron) tablet pyridoxine (vitamin B6) 100 mg 100 mg PO DAILY #30 tabs 12/30/23 tablet thiamine HCl (vitamin B1) 100 mg 100 mg PO DAILY #90 tabs 12/30/23 tablet prednisone 20 mg tablet 60 mg (3 x 20 mg) PO DAILY back 04/29/24 pain 5 days #15 tabs Allergies Allergy/AdvReac Type Severity Reaction Status Date / Time SHRIMP Allergy Severe SWELLING Uncoded 04/29/24 18:54 shrimp Allergy Unknown facial Uncoded 04/29/24 18:54 swelling, rash Review of Systems 2 Review of Systems: Review of systems: General: Patient denies any fever chills recent illness or falls Musculoskeletal: back pain no body aches or other injuries HEENT: denies headache, runny nose, ear pain Respiratory: denies shortness of breath, cough Cardiovascular: no chest pain or palpitations : denies dysuria, frequency Abdomen: no nausea vomiting denies abdominal pain Extremities: no swelling, no pain Skin: no diaphoresis Yes all other systems are reviewed and are negative PMFSH Past Medical History Medical History (Updated 04/29/24 @ 19:56 by Russ Renteria DO) Anxiety and depression Alcoholism Serum total bilirubin elevated Elevated liver enzymes Microcytic hypochromic anemia Coarse tremors Polyarthralgia Essential hypertension Surgical History (Updated 12/30/23 @ 01:46 by Yissel Johnson MD) No pertinent past surgical history Family History Family History (Updated 04/08/24 @ 01:49 by Yissel Johnson MD) Sister Diabetes mellitus Social History Social History Housing: Apartment Alcohol intake: never Patient Tobacco Use Status: Never used Tobacco e-Cigarette/Vaping Use: Never Used Advance Directives: No Advance Directives Information Provided: No service: No Current occupational status: unemployed Cognitive needs: No Hearing needs: No Vision needs: Yes Physical Exam 2 Vital Signs: Vital Signs: Last Vital Signs Temp 97.6 F 04/29/24 18:54 Pulse 81 04/29/24 18:54 Resp 18 04/29/24 18:54 BP 131/80 04/29/24 18:54 Pulse Ox 97 04/29/24 18:54 O2 Del Method Room Air 04/29/24 18:54 BMI result Body Mass Index 25.9 General: Well-appearing well-nourished in no signs of distress HEENT: Normocephalic atraumatic Neck: No signs of JVD, no masses no tenderness or lymphadenopathy Cardiovascular: Regular rate and rhythm Respiratory: Clear to auscultation bilaterally Abdomen: Soft nontender no masses he is able to squeeze his butt cheeks together Extremities: Normal pedal pulses no signs of edema Skin: Dry warm no rashes Back: No tenderness full ROM negative straight leg test normal reflexes bilateral lower extremity Course Course Course Narrative: This is a Rapid Medical Exam performed in triage by Phyllis Grove PA-C. Full HPI, ROS and PE to be performed by primary ED provider. 44 year-old M w/ PMHx anxiety, depression, polyarthralgia, HTN, ETOH abuse presenting to the ED via EMS c/o low back radiating down LLE, arm pain, & neck pain x few days. Admits to fall at home a few days ago, cannot remember incident. Reports recurrent falls. States when he is on the ground has difficulty getting up. denies hitting head when he fell. Denies drug use, admits to drinking ETOH last night, denies drinking today. Poor historian. PE: in wheelchair, no evidence of trauma. Plan: Labs, XR, GARCÍA Medical Decision Making Medical Decision Making MDM Narrative: I will treat the patient with prednisone and Tylenol send the patient home with muscle relaxants he will not be sober for over 12 hours. Patient be sent out to the [facility] [place], [place] Differential Diagnosis Differential Diagnoses: The differential diagnosis associated with the presentation includes Back pain lumbar radiculopathy alcohol intoxication electrolyte abnormality Admission/Observation Consideration of admission/observation: Escalation of care including admission/observation considered Lab Data 04/29/24 19:05 04/29/24 19:05 Labs: Lab Results 04/29/24 Range/Units 19:05 WBC 4.1 L (4.8-10.8) X10*3/uL RBC 3.63 L (4.60-5.80) X10*6/uL Hgb 9.4 L (14.0-18.0) g/dl Hct 29.1 L (42.0-52.0) % MCV 80.2 (80.0-98.0) fL MCH 25.9 L (27.0-33.0) pg MCHC 32.3 (31.0-36.0) g/dl RDW 19.8 H (11.0-16.0) % Plt Count 78 L (160-400) X10*3/uL MPV 9.6 (9.4-12.4) fL Immature Gran % (Auto) 0.2 (0.0-0.4) % Neut % (Auto) 44.9 L (45-73) % Lymph % (Auto) 43.9 H (20-40) % Russell % (Auto) 5.6 (2-11) % Eos % (Auto) 2.9 (0-4) % Baso % (Auto) 2.5 H (0-2) % Lymph # (Auto) 1.8 (1.2-4.9) X10*3/uL Russell # (Auto) 0.2 (0.1-1.2) X10*3/uL Eos # (Auto) 0.1 (0.0-0.4) X10*3/uL Baso # (Auto) 0.1 (0.0-0.2) X10*3/uL Abs Immat Gran (auto) 0.01 (0.00-0.03) X10*3/uL Absolute Neuts (auto) 1.8 L (2.0-8.3) x10*3/uL Absolute Nucleated RBC 0.000 (0.0-0.012) X10*3/uL Nucleated RBC % (auto) 0.0 (0.0-0.2) /100WBC Smear Tech's Comments VERIFIED Sodium 139 (135-145) mmol/L Potassium 4.0 (3.3-5.1) mmol/L Chloride 104 (96-108) mmol/L Carbon Dioxide 22 (22-29) mmol/L Anion Gap 17 (12-20) BUN 7 L (9-16) mg/dL Creatinine 0.73 (0.5-1.4) mg/dL Estim Creat Clear Calc 111.1 Estimated GFR > 60 Random Glucose 109 (60-115) mg/dL Calcium 8.5 (8.4-10.2) mg/dL Magnesium 1.4 L* (1.6-2.6) mg/dL Total Bilirubin 1.6 H (0.0-1.0) mg/dL Direct Bilirubin 0.9 H (0.0-0.5) mg/dL AST 143 H (5-37) U/L ALT 43 H (0-40) U/L Alkaline Phosphatase 82 (39-117) U/L Total Protein 9.1 H (6.5-8.0) g/dL Albumin 3.4 L (3.5-5.0) g/dL Ethyl Alcohol 413 H* mg/dL Discharge Plan Discharge Clinical Impression: Alcoholism, Back pain, Alcohol intoxication, Hypomagnesemia Patient Disposition: Still a Patient Instructions: Abuse of Alcohol (DC), Acute Low Back Pain (ED) Additional Instructions: You were seen today after police found you on the ground you were denying alcohol use liver blood alcohol was about 20 times legal limit. You complain of back pain you had x-rays and labs everything was normal. Please call follow up with your doctor police stopped drinking so much alcohol Prescriptions: New prednisone 20 mg tablet 60 mg PO DAILY 5 Days Qty: 15 0RF No Action thiamine HCl (vitamin B1) 100 mg tablet 100 mg PO DAILY Qty: 90 1RF cholecalciferol (vitamin D3) 1,250 mcg (50,000 unit) capsule 1,250 mcg PO QWEEK 90 Days Qty: 13 1RF pyridoxine (vitamin B6) 100 mg tablet 100 mg PO DAILY Qty: 30 0RF ferrous sulfate 325 mg (65 mg iron) tablet 325 mg PO DAILY Qty: 90 1RF Print Language: Albanian
[2024-04-29 18:54] VITALS: BP 131/80; PULSE 81; RESP 18; TEMP 36.4; O2SAT 97; BMI 25.9
[2024-04-29 19:11] LABS: Basophils Absolute Auto 0.1 X10*3/uL (0.0-0.2); Basophils Percent Auto 2.5 % (0-2); Eosinophils Absolute Auto 0.1 X10*3/uL (0.0-0.4); Eosinophils Percent Auto 2.9 % (0-4); Hematocrit 29.1 % (42.0-52.0); Hemoglobin 9.4 g/dl (14.0-18.0); Imm Gran Abs Auto 0.01 X10*3/uL (0.00-0.03); Imm Gran Pct Auto 0.2 % (0.0-0.4); Lymphocytes Absolute Auto 1.8 X10*3/uL (1.2-4.9); Lymphocytes Percent Auto 43.9 % (20-40); Mean Corpuscular HGB Conc 32.3 g/dl (31.0-36.0); Mean Corpuscular Hemoglobin 25.9 pg (27.0-33.0); Mean Corpuscular Volume 80.2 fL (80.0-98.0); Mean Platelet Volume 9.6 fL (9.4-12.4); Monocytes Absolute Auto 0.2 X10*3/uL (0.1-1.2); Monocytes Percent Auto 5.6 % (2-11); Neutrophils Absolute Auto 1.8 x10*3/uL (2.0-8.3); Neutrophils Percent Auto 44.9 % (45-73); Red Blood Count 3.63 X10*6/uL (4.60-5.80); Red Cell Distribution Width 19.8 % (11.0-16.0); White Blood Count 4.1 X10*3/uL (4.8-10.8)
[2024-04-29 19:15] LABS: Platelet Count 78 X10*3/uL (160-400)
[2024-04-29 19:17] LABS: MANUAL DIFF FLAG SCAN
[2024-04-29 19:21] LABS: Ethanol 413 mg/dL
[2024-04-29 19:27] LABS: Alanine Aminotransferase 43 U/L (0-40); Albumin Level 3.4 g/dL (3.5-5.0); Alkaline Phosphatase 82 U/L (39-117); Anion Gap 17 (12-20); Aspartate Amino Transferase 143 U/L (5-37); Bilirubin Direct 0.9 mg/dL (0.0-0.5); Bilirubin Total 1.6 mg/dL (0.0-1.0); Blood Urea Nitrogen 7 mg/dL (9-16); Calcium 8.5 mg/dL (8.4-10.2); Carbon Dioxide 22 mmol/L (22-29); Chloride 104 mmol/L (96-108); Creatinine Clr Calc Pharmacy 111.1; Estimated Glomerular Filt Rate > 60; Glucose Random 109 mg/dL (60-115); Magnesium 1.4 mg/dL (1.6-2.6); Sodium 139 mmol/L (135-145); Total Protein 9.1 g/dL (6.5-8.0)
[2024-04-29 19:35] LABS: SLIDE REVIEW VERIFIED
[2024-04-29] MEDS: Magnesium Sulfate/H2O 2 GM/50 ML PIGGYBACK IV (19:54)
[2024-04-29] MEDS: 0.9 % Sodium Chloride 1,000 ML 999 ML IV (19:54)
[2024-04-29] MEDS: Cyclobenzaprine HCl 5 MG TABLET PO (19:57)
[2024-04-29] MEDS: Acetaminophen 325 MG TABLET 650 MG PO (19:57)
[2024-04-29 20:00] VITALS: PULSE 83; RESP 20; O2SAT 98
[2024-04-29 20:08] VITALS: BP 116/80; PULSE 84; RESP 19; TEMP 36.6; O2SAT 98
[2024-04-29 20:53] LABS: Amphetamine Screen Urine Not Detected (Not Detect); Barbiturates, Urine Not Detected (Not Detect); Benzodiazepines Screen Urine Not Detected (Not Detect); Buprenorphine Scr Not Detected (Not Detect); Cannabinoid Screen Urine Not Detected (Not Detect); Cocaine Screen Urine Not Detected (Not Detect); Fentanyl, urine Not Detected (Not Detect); Methadone Screen, Urine Not Detected (Not Detect); Opiate Screen Urine Not Detected (Not Detect); Oxycodone Screen Urine Not Detected (Not Detect); Phencyclidine Screen Urine Not Detected (Not Detect)
--- NOTE | 2024-04-29 21:23 | PC.NURSE ---
At 2118, staff found an open natty daddy in the patient's possession that was stored in his belongings. The patient was agreeable to allowing staff to dispose of the open container and it's contents. Security called to bedside to assist with going through his remaining possessions for additional alcohol or drugs. Security found 5 unopenned cans of natty daddy which were collected, labeled and given to security for security/safe keeping.
[2024-04-29 22:49] VITALS: BP 123/77; PULSE 80; RESP 18; RESP 8; TEMP 36.6; O2SAT 97
[2024-04-30 05:08] VITALS: BP 128/71; PULSE 78; RESP 13; TEMP 36.7; O2SAT 96
[2024-04-30 07:10] VITALS: BP 126/81; PULSE 86; RESP 16; TEMP 36.7; O2SAT 96
== END 2024-04-30 07:11 | disposition home or self-care (01) ==
PROVIDERS: Physician Assistant; Emergency Provider Student in an Organized Health Care Education/Training Program; PCP Internal Medicine
DX: F10.129 Alcohol abuse with intoxication, unspecified (principal); Y90.8 Blood alcohol level of 240 mg/100 ml or more; E83.42 Hypomagnesemia; R11.2 Nausea with vomiting, unspecified; M54.50 Low back pain, unspecified; Z79.899 Other long term (current) drug therapy
CPT/HCPCS: 36415; 72100; 80048; 80076; 80307; 83735; 85025; 96361; 96374; 99285; J3475

== ENCOUNTER 2025-01-04 11:21 | Outpatient (AMB) | payer OTHER, SELFPAY ==
--- NOTE | 2025-01-04 11:48 | MHC.PC.OV ---
Vital Signs 01/04/25 11:52 Height 5 ft 5 in Weight 147 lb BMI 24.5 BP 138/74 Blood Pressure Location Lt brachial Position Sitting Respiration 16 Pulse 101 H Pulse Source Pulse Oximeter Temp 97.9 F Temp Source Oral Pulse Oximetry (%) 98 Oxygen Delivery Method Room Air Intake Visit Reasons: Annual PE Intake Note: Pt is here today for his PE Allergies SHRIMP Allergy (Severe, Uncoded 01/04/25 12:04) SWELLING shrimp Allergy (Unknown, Uncoded 01/04/25 12:04) facial swelling, rash Medication List - Last Reconciled 01/04/25 by Yissel Johnson MD No Known Home Meds Tobacco use date assessed: 01/04/25 Dental Screening Dental Screen Date: 12/24/23 HPI Annual PE HPI Details 44 year old male w/ past medical history of depression with anxiety, previously being seen at [facility], has polyarthralgia with history of frequent falls, seen several times a day ER, has hypertension, alcohol abuse, here today for physical exam. Patient very poor historian. Still continues to drink, averaging 3 or more beers a day. Currently not seeing a therapist anymore as he states that his therapist keeps changing. Patient states that he has difficulty walking due to pain in joints and weakness. [facility] Medical History (Updated 01/04/25 @ 12:39 by Yissel Johnson MD) Left anterior knee pain Anxiety and depression Alcoholism Serum total bilirubin elevated Elevated liver enzymes Microcytic hypochromic anemia Coarse tremors Polyarthralgia Essential hypertension Surgical History No pertinent past surgical history Family History Sister Diabetes mellitus Social History Housing: Apartment Alcohol intake: current Alcohol intake frequency: 3 or more drinks per day Alcohol type: beer Patient Tobacco Use Status: Never used Tobacco e-Cigarette/Vaping Use: Never Used service: No Current occupational status: unemployed Cognitive needs: No Hearing needs: No Vision needs: Yes Questionnaire PHQ-9 Over the last 2 weeks, how often have you been bothered by any of the following problems? 1. Little interest or pleasure in doing things: several days 2. Feeling down, depressed, or hopeless: several days 3. Trouble falling or staying asleep, or sleeping too much: not at all 4. Feeling tired or having little energy: not at all 5. Poor appetite or overeating: not at all 6. Feeling bad about yourself - or that you are a failure or have let yourself or your family down: several days 7. Trouble concentrating on things, such as reading the newspaper or watching television: not at all 8. Moving or speaking so slowly that other people could have noticed. Or the opposite - being so fidgety or restless that you have been moving around a lot more than usual: not at all 9. Thoughts that you would be better off or of hurting yourself in some way: not at all Total score: 3 Depression Screening Interpretation: Positive (Previously followed by therapist at [facility], but they keep changing therapist and now he does not want to go to [place] where they are offering, referred to Divya for assistance in getting appt with new therapist and psychiatry) Depression Screening Follow-up: Existing condition, In treatment and Community Mental Health Worker F/U Depression Screening Done: Yes 57044 - PHQ-9 Billing: Yes Source: Developed by Drs. Osbaldo Dumont, Berenice Bowles, Ad Acosta and colleagues, with an educational ailyn from [employer]. Thrive Questionnaire Date Thrive assessed: 01/04/25 I am a: Patient What is your living situation today?: I have a steady place to live Within the past 12 months, did the food you bought not last and you didn't have the money to get more?: Never true Within the past 12 months, did you worry whether your food would run out before you got money to buy more?: Never true Do you have trouble paying for medicines?: No Do you have trouble getting transportation to medical appointments?: Yes Do you have trouble paying your heating and electricity bill?: No Do you have trouble taking care of your child, family member or friend?: No Do you have trouble with day-to-day activities such as bathing, preparing meals, shopping, managing finances, etc.?: Yes Are you currently unemployed and looking for a job?: No Are you interested in more education?: No Please select the resources that you would like help with: Transportation and Daily support THRIVE Score: 1 AUDIT C Alcohol Use Questionnaire (AUDIT-C) 1. How often do you have a drink containing alcohol?: 4 or more times a week 2. How many drinks containing alcohol do you have on a typical day when you are drinking?: 3 or 4 3. How often do you have six or more drinks on one occasion?: Weekly Total Score: 8 Review of Systems Const Denies fever(s), Reports frequent falls, Denies headache(s), Reports malaise and Reports poor appetite Eyes Reports no additional complaints ENT Denies dysphagia, Denies ear discharge, Denies headache(s) and Denies mouth lesions Card Denies chest pain, Reports rapid heart rate, Denies edema, Denies irregular heart rhythm and Reports lightheadedness (Occasional) Resp Denies cough GI Denies melena, Reports bloating, Denies constipation, Denies dysphagia, Denies heartburn and Denies diarrhea Reports no additional complaints Musc Reports abnormal gait, Reports myalgias, Reports arthralgias, Denies joint swelling and Reports stiffness Skin/Breast Denies rash Neuro Reports abnormal gait, Reports frequent falls and Denies headache(s) Psych Reports abnormal sleep pattern, Reports anxiety, Reports difficulty concentrating, Reports panic attacks, Denies homicidal ideation and Denies suicidal ideation Endo Reports no additional complaints [place]/Lymph Denies easy bleeding and Denies easy bruising Aller/Immun Reports no additional complaints Physical exam (Primary Care) Vital Signs: Last Vital Signs Temp 97.9 F 01/04/25 11:52 Pulse 101 H 01/04/25 11:52 Resp 16 01/04/25 11:52 BP 138/74 01/04/25 11:52 Pulse Ox 98 01/04/25 11:52 Oxygen Delivery Method Room Air 01/04/25 11:52 BMI result Body Mass Index 24.5 Tobacco/Smoking Status: Tobacco use Status Tobacco use date assessed 01/04/25 01/04/25 11:59 Patient Tobacco Use Status Never used Tobacco 01/04/25 11:49 e-Cigarette/Vaping Use Never Used 01/04/25 11:49 PHQ-9: PHQ-9 Score PHQ-9: Total score 3 01/17/25 15:57 Depression Screening Interpretation: Positive (Previously followed by therapist at [facility], but they keep changing therapist and now he does not want to go to [place] where they are offering, referred to Divya for assistance in getting appt with new therapist and psychiatry) Depression Screening Follow-up: Existing condition, In treatment and Community Mental Health Worker F/U Thrive Assessment: Date of Thrive Assessment Date Thrive assessed 01/04/25 01/17/25 15:57 Advance Care Planning discussion: Completed/Scanned Date of discussion: 01/04/25 Who was present: Patient and sister Forms completed: Health Care Proxy Time spent: 16-45 minutes Actual minutes spent: 5 Const Other: Awake alert oriented x3, accompanied by sister on this visit, ambulatory with date of cane General: no acute distress and alert Nutritional Appearance: average body habitus Orientation/consciousness: oriented to person and oriented to place HENMT Head: Yes normocephalic and Yes atraumatic Ears: hearing grossly normal bilaterally, external ears normal, TM's normal bilaterally and EAC's normal General nose exam: Normal external nose present Face and sinus: Yes face symmetric Mouth: Normal oral and palatal mucosa present, oropharynx normal and moist mucous membranes Eyes Eyelids: Yes eyelid abnormality (External hordeolum right upper lid) Conjunctivae: conjunctival abnormal (Pale palpebral conjunctiva bilateral) and other Neck Neck: Yes full ROM, Yes no lymphadenopathy and Yes supple Thyroid: Thyroid normal Chest Chest palpation & inspection: normal inspection of the chest Resp Other: Clear to auscultation bilaterally Cardio Other: Tachycardic GI Other: Obese with slightly bloated abdomen, normal bowel sounds, nontender to palpation, no mass palpated Palpation (GI): Soft to palpation, nontender, no guarding and no masses Auscultation: Hyperactive bowel sounds present Back/Spine/Pelvis Back: back tenderness (Paraspinal muscles in the lumbar area, negative straight leg raising sign) Thoracic/Lumbar Spine: straight leg raise negative bilaterally Skin General skin exam: no rashes or lesions noted, no jaundice, no petechiae and no purpura Neuro General: oriented to person, oriented to place and no focal motor deficits Extrem General: Yes full ROM, Yes no joint enlargement, Yes no clubbing, cyanosis or edema and Yes no pedal edema Psych Appearance: grossly normal Mental Status: mental status grossly normal Speech and movement: Normal speech and movement present Attitude: cooperative Coding Level of Care Code Est Pt Prev Care 40-64y(70429) Diagnoses Annual visit for general adult medical examination with abnormal findings Z00.01 Elevated liver enzymes R74.8 Serum total bilirubin elevated R17 Alcoholism F10.20 Essential hypertension I10 Microcytic hypochromic anemia D50.9 Anxiety and depression F41.9; F32.A Left anterior knee pain M25.562 Hordeolum externum of right upper eyelid H00.011 Eyelid: upper Laterality: right Advanced directives, counseling/discussion Z71.89 Additional Codes PHQ-9 - 61081 - PHQ-9 Billing: Yes ([id number]) Vital Signs *Quality* - Advance Care Planning discussion: Completed/Scanned ([id number]) Vital Signs *Quality* - Time spent: 16-45 minutes ([id number]) Assessment & Plan Assessment & Plan (1) Annual visit for general adult medical examination with abnormal findings: Code(s): Z00.01 - Encounter for general adult medical examination with abnormal findings Plan: Will check appropriate labs. Recommended dental visit every 6 months and regular eye exams, at least every 2 years. Encouraged to alcohol intake referred to addiction Medicine. Reinforced importance of following a healthy diet. Patient declined all recommended vaccines. Referred to GI for his initial screening colonoscopy and evaluation of elevated liver enzymes and bilirubin levels (2) Elevated liver enzymes: Code(s): R74.8 - Abnormal levels of other serum enzymes Category: Medical Plan: History of elevated liver enzymes in the past, slightly due to alcohol intake. Comprehensive metabolic panel ordered, referred to addiction Medicine Clinic, abdominal ultrasound ordered (3) Serum total bilirubin elevated: Code(s): R17 - Unspecified jaundice Category: Medical Plan: Comprehensive metabolic panel ordered and abdominal ultrasound ordered (4) Alcoholism: Code(s): F10.20 - Alcohol dependence, uncomplicated Category: Medical Plan: Referred to addiction Medicine, patient agreeable to referral, ordered to check CBC, vitamin B12, folic acid, vitamin B1 and B6, vitamin-D, iron profile, comprehensive metabolic panel (5) Essential hypertension: Code(s): I10 - Essential (primary) hypertension Category: Medical Plan: Strongly advised to cut back on alcohol or stops alcohol intake altogether. Blood pressure today within acceptable limits. (6) Microcytic hypochromic anemia: Code(s): D50.9 - Iron deficiency anemia, unspecified Category: Medical Plan: Ordered CBC with iron profile (7) Anxiety and depression: Code(s): F41.9 - Anxiety disorder, unspecified; F32.A - Depression, unspecified Category: Medical Plan: Referred to our mental health counselor for assistance in getting seen by new therapist and Psychiatry, patient does not want to go to [facility] (8) Left anterior knee pain: Code(s): M25.562 - Pain in left knee Category: Medical Plan: X-ray left knee ordered (9) Microcytic hypochromic anemia: Code(s): D50.9 - Iron deficiency anemia, unspecified Category: Medical Plan: Ordered CBC with differential, iron profile, vitamin B12 and folic acid level (10) External hordeolum: Comment: Right upper, present now for the last 2 months Code(s): H00.019 - Hordeolum externum unspecified eye, unspecified eyelid Category: Medical Qualifiers: Eyelid: upper Laterality: right Qualified Code(s): H00.011 - Hordeolum externum right upper eyelid Plan: Apply warm compresses to affected eye, advised to schedule an appointment with [facility] or [facility] for further evaluation management if lesion does not resolve (11) Advanced directives, counseling/discussion: Code(s): Z71.89 - Other specified counseling Plan: Initiated the conversation about Advanced Directives. Advanced Directives help patients prepare for current and future decisions about their medical treatment and place of care. Discussed with patient that it is a process where a patients current condition and prognosis are reviewed, their wishes for information regarding their illness are elicited, and likely medical dilemmas are presented and options discussed. Healthcare proxy form completed today. form can be amended as needed, reviewed yearly and make changes as needed Orders: Orders IRON PROFILE 01/01/25 R74.8 - Abnormal levels of other serum enzymes, D50.9 - Iron deficiency anemia, unspecified, I10 - Essential (primary) hypertension, M25.50 - Pain in unspecified joint, F10.20 - Alcohol dependence, uncomplicated, R17 - Unspecified jaundice, F41.9 - Anxiety disorder, unspecified, F32.A - Depression, unspecified Vitamin D 25-OH Total 01/01/25 R74.8 - Abnormal levels of other serum enzymes, D50.9 - Iron deficiency anemia, unspecified, I10 - Essential (primary) hypertension, M25.50 - Pain in unspecified joint, F10.20 - Alcohol dependence, uncomplicated, R17 - Unspecified jaundice, F41.9 - Anxiety disorder, unspecified, F32.A - Depression, unspecified Vitamin B12 and Folate 01/01/25 R74.8 - Abnormal levels of other serum enzymes, D50.9 - Iron deficiency anemia, unspecified, I10 - Essential (primary) hypertension, M25.50 - Pain in unspecified joint, F10.20 - Alcohol dependence, uncomplicated, R17 - Unspecified jaundice, F41.9 - Anxiety disorder, unspecified, F32.A - Depression, unspecified Vitamin B6 01/01/25 R74.8 - Abnormal levels of other serum enzymes, D50.9 - Iron deficiency anemia, unspecified, I10 - Essential (primary) hypertension, M25.50 - Pain in unspecified joint, F10.20 - Alcohol dependence, uncomplicated, R17 - Unspecified jaundice, F41.9 - Anxiety disorder, unspecified, F32.A - Depression, unspecified Complete Blood Count Auto Diff 01/04/25 F10.20 - Alcohol dependence, uncomplicated, F41.9 - Anxiety disorder, unspecified, F32.A - Depression, unspecified, R17 - Unspecified jaundice, R74.8 - Abnormal levels of other serum enzymes, D50.9 - Iron deficiency anemia, unspecified, M25.50 - Pain in unspecified joint, I10 - Essential (primary) hypertension Comprehensive [place]. Panel Fast 01/04/25 F10.20 - Alcohol dependence, uncomplicated, F41.9 - Anxiety disorder, unspecified, F32.A - Depression, unspecified, R17 - Unspecified jaundice, R74.8 - Abnormal levels of other serum enzymes, D50.9 - Iron deficiency anemia, unspecified, M25.50 - Pain in unspecified joint, I10 - Essential (primary) hypertension Lipid Panel 01/04/25 F10.20 - Alcohol dependence, uncomplicated, F41.9 - Anxiety disorder, unspecified, F32.A - Depression, unspecified, R17 - Unspecified jaundice, R74.8 - Abnormal levels of other serum enzymes, D50.9 - Iron deficiency anemia, unspecified, M25.50 - Pain in unspecified joint, I10 - Essential (primary) hypertension Vitamin B12 and Folate 01/04/25 F10.20 - Alcohol dependence, uncomplicated, F41.9 - Anxiety disorder, unspecified, F32.A - Depression, unspecified, R17 - Unspecified jaundice, R74.8 - Abnormal levels of other serum enzymes, D50.9 - Iron deficiency anemia, unspecified, M25.50 - Pain in unspecified joint, I10 - Essential (primary) hypertension Vitamin B6 01/04/25 F10.20 - Alcohol dependence, uncomplicated, F41.9 - Anxiety disorder, unspecified, F32.A - Depression, unspecified, R17 - Unspecified jaundice, R74.8 - Abnormal levels of other serum enzymes, D50.9 - Iron deficiency anemia, unspecified, M25.50 - Pain in unspecified joint, I10 - Essential (primary) hypertension Vitamin B1 01/04/25 F10.20 - Alcohol dependence, uncomplicated, F41.9 - Anxiety disorder, unspecified, F32.A - Depression, unspecified, R17 - Unspecified jaundice, R74.8 - Abnormal levels of other serum enzymes, D50.9 - Iron deficiency anemia, unspecified, M25.50 - Pain in unspecified joint, I10 - Essential (primary) hypertension Vitamin D 25-OH Total 01/04/25 F10.20 - Alcohol dependence, uncomplicated, F41.9 - Anxiety disorder, unspecified, F32.A - Depression, unspecified, R17 - Unspecified jaundice, R74.8 - Abnormal levels of other serum enzymes, D50.9 - Iron deficiency anemia, unspecified, M25.50 - Pain in unspecified joint, I10 - Essential (primary) hypertension US abdomen complete 01/04/25 F10.20 - Alcohol dependence, uncomplicated, R17 - Unspecified jaundice, R74.8 - Abnormal levels of other serum enzymes Comprehensive [place]. Panel Fast 01/01/25 R74.8 - Abnormal levels of other serum enzymes, D50.9 - Iron deficiency anemia, unspecified, I10 - Essential (primary) hypertension, M25.50 - Pain in unspecified joint, F10.20 - Alcohol dependence, uncomplicated, R17 - Unspecified jaundice, F41.9 - Anxiety disorder, unspecified, F32.A - Depression, unspecified Complete Blood Count Auto Diff 01/01/25 R74.8 - Abnormal levels of other serum enzymes, D50.9 - Iron deficiency anemia, unspecified, I10 - Essential (primary) hypertension, M25.50 - Pain in unspecified joint, F10.20 - Alcohol dependence, uncomplicated, R17 - Unspecified jaundice, F41.9 - Anxiety disorder, unspecified, F32.A - Depression, unspecified Lipid Panel 01/01/25 R74.8 - Abnormal levels of other serum enzymes, D50.9 - Iron deficiency anemia, unspecified, I10 - Essential (primary) hypertension, M25.50 - Pain in unspecified joint, F10.20 - Alcohol dependence, uncomplicated, R17 - Unspecified jaundice, F41.9 - Anxiety disorder, unspecified, F32.A - Depression, unspecified Vitamin B1 01/01/25 R74.8 - Abnormal levels of other serum enzymes, D50.9 - Iron deficiency anemia, unspecified, I10 - Essential (primary) hypertension, M25.50 - Pain in unspecified joint, F10.20 - Alcohol dependence, uncomplicated, R17 - Unspecified jaundice, F41.9 - Anxiety disorder, unspecified, F32.A - Depression, unspecified IRON PROFILE 01/04/25 F10.20 - Alcohol dependence, uncomplicated, F41.9 - Anxiety disorder, unspecified, F32.A - Depression, unspecified, R17 - Unspecified jaundice, R74.8 - Abnormal levels of other serum enzymes, D50.9 - Iron deficiency anemia, unspecified, M25.50 - Pain in unspecified joint, I10 - Essential (primary) hypertension XR knee LT 4V 01/04/25 M25.562 - Pain in left knee Referrals Addiction Medicine Referral F10.20 - Alcohol dependence, uncomplicated, R17 - Unspecified jaundice, R74.8 - Abnormal levels of other serum enzymes Gastroenterology Referral R74.8 - Abnormal levels of other serum enzymes, D50.9 - Iron deficiency anemia, unspecified, F10.20 - Alcohol dependence, uncomplicated, R17 - Unspecified jaundice Medications: New walker As directed 1 ea 0RF M25.562 - Pain in left knee, R26.81 - Unsteadiness on feet
[2025-01-04 11:52] VITALS: BP 138/74; PULSE 101; RESP 16; TEMP 36.6; O2SAT 98; BMI 24.5
== END 2025-01-04 13:01 | disposition home or self-care (01) ==
PROVIDERS: PCP Internal Medicine; Visit Provider Internal Medicine
DX: Z00.01 Encounter for general adult medical examination with abnormal findings (principal); R74.8 Abnormal levels of other serum enzymes; R17 Unspecified jaundice; F10.20 Alcohol dependence, uncomplicated; I10 Essential (primary) hypertension; D50.9 Iron deficiency anemia, unspecified; F41.9 Anxiety disorder, unspecified; F32.A Depression, unspecified; M25.562 Pain in left knee; H00.011 Hordeolum externum right upper eyelid; Z71.89 Other specified counseling; Z00.00 Encounter for general adult medical examination without abnormal findings

== ENCOUNTER 2025-01-04 11:21 | Outpatient (REF) | payer OTHER, SELFPAY ==
--- NOTE | ~2025-01-04 | XR_ITS ---
EXAMINATION: XR KNEE 4 OR MORE VIEWS LEFT HISTORY: M25.562 - Pain in left knee COMPARISON: Comparison is made with the prior examination dated 12/31/2022. FINDINGS: Four views of the left knee are submitted. Patchy demineralization persists and is unchanged. There is no fracture or dislocation. The joint spaces are preserved. The soft tissues are unremarkable. There is no joint effusion. XR/XR knee LT 4V IMPRESSION: No evidence of fracture or significant degenerative changes of the left knee. Electronically signed by: Osbaldo Palacios MD 01/05/2025 09:58 AM EDT
== END 2025-01-04 11:22 | disposition home or self-care (01) ==
LOC: HO.HMGCX 11:21
PROVIDERS: PCP Internal Medicine; Visit Provider Internal Medicine
DX: Z00.01 Encounter for general adult medical examination with abnormal findings (principal); R74.8 Abnormal levels of other serum enzymes; D50.9 Iron deficiency anemia, unspecified; I10 Essential (primary) hypertension; M25.50 Pain in unspecified joint; F10.20 Alcohol dependence, uncomplicated; R17 Unspecified jaundice; F41.9 Anxiety disorder, unspecified; F32.A Depression, unspecified; M25.562 Pain in left knee; H00.011 Hordeolum externum right upper eyelid; Z71.89 Other specified counseling
CPT/HCPCS: 73564; 96127; 99396; 99497

== ENCOUNTER → 2025-01-04 13:18 | Outpatient (BNV) | payer OTHER, SELFPAY | PROVIDERS: PCP Internal Medicine; Visit Provider Radiology Diagnostic Radiology | DX: M25.562 Pain in left knee (principal) | CPT/HCPCS: 73564 ==

== ENCOUNTER 2025-01-14 09:00 | Outpatient (REF) | payer OTHER, SELFPAY ==
[2025-01-14 09:22] LABS: MANUAL DIFF FLAG NO
[2025-01-14 09:42] LABS: Basophils Absolute Auto 0.1 X10*3/uL (0.0-0.2); Basophils Percent Auto 1.2 % (0-2); Eosinophils Absolute Auto 0.2 X10*3/uL (0.0-0.4); Eosinophils Percent Auto 3.8 % (0-4); Hemoglobin 9.9 g/dl (14.0-18.0); Imm Gran Abs Auto 0.01 X10*3/uL (0.00-0.03); Imm Gran Pct Auto 0.2 % (0.0-0.4); Mean Corpuscular HGB Conc 31.9 g/dl (31.0-36.0); Mean Corpuscular Hemoglobin 25.9 pg (27.0-33.0); Mean Corpuscular Volume 81.2 fL (80.0-98.0); Mean Platelet Volume 10.2 fL (9.4-12.4); Monocytes Absolute Auto 0.6 X10*3/uL (0.1-1.2); Monocytes Percent Auto 9.9 % (2-11); Neutrophils Absolute Auto 1.9 x10*3/uL (2.0-8.3); Neutrophils Percent Auto 32.9 % (45-73); Platelet Count 80 X10*3/uL (160-400); Red Blood Count 3.82 X10*6/uL (4.60-5.80); Red Cell Distribution Width 18.4 % (11.0-16.0); White Blood Count 5.8 X10*3/uL (4.8-10.8)
[2025-01-14 10:33] LABS: Alanine Aminotransferase 35 U/L (0-40); Albumin Level 3.5 g/dL (3.5-5.0); Alkaline Phosphatase 61 U/L (39-117); Anion Gap 12 (12-20); Aspartate Amino Transferase 105 U/L (5-37); Bilirubin Total 2.3 mg/dL (0.0-1.0); Blood Urea Nitrogen 10 mg/dL (9-16); Calcium 8.8 mg/dL (8.4-10.2); Carbon Dioxide 21 mmol/L (22-29); Chloride 103 mmol/L (96-108); Cholesterol 89 mg/dL (<200); Estimated Glomerular Filt Rate > 60; Glucose Fasting 86 mg/dL (60-99); HDL Cholesterol 30 mg/dL (>40); Iron 27 mcg/dL (45-160); LDL Cholesterol Calculated 48 mg/dL (<100); Percent Iron Saturation 7 % (15-50); Potassium 3.4 mmol/L (3.3-5.1); Sodium 133 mmol/L (135-145); Total Iron Binding Capacity 384 mcg/dL (228-428); Total Protein 9.2 g/dL (6.5-8.0); Triglycerides 58 mg/dL (<150); Unsaturated Iron Binding 357 ug/dL
[2025-01-14 10:46] LABS: Folate 10.8 ng/mL (> or = 4.0); Vitamin B12 1925 pg/mL (200-900)
[2025-01-20 14:37] LABS: Vitamin B6 8.3 ng/mL (2.1-21.7)
[2025-01-21 16:28] LABS: Vitamin B1 <6 nmol/L (8-30)
== END 2025-01-14 09:01 | disposition home or self-care (01) ==
LOC: HO.LAB 09:00
PROVIDERS: PCP Internal Medicine; Visit Provider Internal Medicine
DX: F10.20 Alcohol dependence, uncomplicated (principal); F41.9 Anxiety disorder, unspecified; F32.A Depression, unspecified; R17 Unspecified jaundice; R74.8 Abnormal levels of other serum enzymes; D50.9 Iron deficiency anemia, unspecified; M25.50 Pain in unspecified joint; I10 Essential (primary) hypertension
CPT/HCPCS: 36415; 80053; 80061; 82306; 82607; 82746; 83540; 84207; 84425; 85025

== ENCOUNTER 2025-01-20 14:00 | Outpatient (AMB) | payer OTHER, SELFPAY ==
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
[2025-01-20 14:08] VITALS: PULSE 90; O2SAT 99
== END 2025-01-20 14:46 | disposition home or self-care (01) ==
LOC: HO.HCC 14:00
PROVIDERS: PCP Internal Medicine; Visit Provider Internal Medicine
DX: F10.20 Alcohol dependence, uncomplicated (principal); F41.9 Anxiety disorder, unspecified; F32.A Depression, unspecified
CPT/HCPCS: 99214

== ENCOUNTER → 2025-01-20 14:00 | Outpatient (BNVA) | payer OTHER, SELFPAY | PROVIDERS: PCP Internal Medicine; Visit Provider Internal Medicine | DX: F10.20 Alcohol dependence, uncomplicated (principal); F41.9 Anxiety disorder, unspecified; F32.A Depression, unspecified | CPT/HCPCS: 99212 ==

== ENCOUNTER 2025-04-09 10:22 | Outpatient (REF) | payer OTHER, SELFPAY ==
--- NOTE | ~2025-04-09 | US_ITS ---
CLINICAL HISTORY: F10.20 - Alcohol dependence, uncomplicated US abdomen complete Comparison: CT/SR - CT ABDOMEN PELVIS WITHOUT IV CONTRAST - 01/27/23 19:26 EDT US/SR - US ABDOMEN - 01/14/23 10:55 EDT Findings: The visualized pancreas is normal, tail is obscured by bowel gas. The visualized aorta and inferior vena cava are normal caliber. The liver is normal in size, right lobe length is 17.3 cm. Mildly echogenic liver parenchyma with coarse echotexture, no focal lesion is seen. No intrahepatic bile duct dilatation. The common duct is 4 mm in diameter. Physiologic distention of the gallbladder, 4 mm echogenic focus is present in the gallbladder, subtle posterior acoustic shadowing noted. No gallbladder wall thickening. Negative sonographic Castellanos's sign. The main portal vein is patent with hepatofugal flow. The right kidney is normal, 11.6 cm in length. The left kidney is normal, 11.8 cm in length. The spleen is normal, 11.1 cm in length. No free fluid in the abdomen. Impression: 1. Abnormal hepatofugal flow of the main portal vein, concerning for portal hypertension, similar finding was noted on prior ultrasound as well. 2. Mildly echogenic liver parenchyma with coarse echotexture, likely related to parenchymal liver disease, no focal lesion is seen. 3. Small gallstone, no acute inflammation. This document has been electronically signed by: Rosamaria Murrieta MD on 04/09/2025 14:01:45
--- OUTSIDE RECORDS SUMMARY | 2025-04-09 10:43 | XMS_ITS | Patient Health Record ---
Author Organization [facility] Address [address] [place] [id number] Care Team Providers Care Yarn Skeins Examiner Name Role Phone Alex GALAVIZ, Yissel Primary Care Provider Jose Alberto Guevara Jr Unavailable Reason For Referral No Information Medications Medication SIG (Take, Route, Frequency, Duration) Notes Start Date End Date Status QUEtiapine Fumarate 25 MG 1 tablet Orall y Once a day Active Ibuprofen 400 MG 1 tablet Orally Thre e times a day Active Aspir-81 81 MG 1 tablet Orally Once a day Active Vitamin D (Ergocalciferol) 13448 UNIT 1 capsule Orally per week Ac tive hydrOXYzine Pamoate 25 MG 1 capsule as n eeded Orally prn Active Omeprazole 20 MG 2 capsules Orally On ce a day Active Metoprolol Succinate ER 25 MG 1 tablet Orally Once a day Active Problems Problem Type SNOMED Code ICD Code Onset Dates Problem Status W/U Status Risk Notes Problem [id number] Elevated liver function tests (R94.5) Active confirmed Plan Of Treatment No Information Insurance Providers Payer Name Payer Address Payer Phone Subscriber Number Group Number Insured Name Patient Relationship to Insured Coverage Start Date Coverage End Date [facility] [employer] [facility] [address] [address] [place], [place] [id number] ISABEL PIÑA Self - patient is the insured Medical (General) History Medical History History ICD Code anxiety/depression hypertension esophageal reflux Surgical History Surgery Date(Month/Year) appendectomy left eye surgery-laser surgery at age 11 s/p blunt trauma growth removed from ear
== END 2025-04-09 10:23 | disposition home or self-care (01) ==
LOC: HO.HMGCX 10:22
PROVIDERS: PCP Internal Medicine; Visit Provider Internal Medicine
DX: R17 Unspecified jaundice (principal); R74.8 Abnormal levels of other serum enzymes; F10.20 Alcohol dependence, uncomplicated
CPT/HCPCS: 76700

== ENCOUNTER → 2025-04-09 10:27 | Outpatient (BNV) | payer OTHER, SELFPAY | PROVIDERS: PCP Internal Medicine; Visit Provider Radiology Diagnostic Radiology | DX: F10.20 Alcohol dependence, uncomplicated (principal) | CPT/HCPCS: 76700 ==

== ENCOUNTER 2025-04-14 11:39 | Outpatient (AMB) | payer OTHER, SELFPAY ==
[2025-04-14 11:46] VITALS: BP 130/76; PULSE 88; RESP 16; TEMP 36.9; O2SAT 100; BMI 25.3
--- NOTE | 2025-04-14 11:46 | A.OFFPC_ITS ---
Vital Signs 04/14/25 11:46 Height 5 ft 5 in Weight 152 lb BMI 25.3 BP 130/76 Blood Pressure Location Rt brachial Position Sitting Respiration 16 Pulse 88 Pulse Source Pulse Oximeter Temp 98.4 F Temp Source Oral Pulse Oximetry (%) 100 Oxygen Delivery Method Room Air Intake Visit Reasons: 3m follow up Intake Note: pt is here for his 3 month follow up Box Packer Required: No Accompanied by: Self / Same As Patient Allergies SHRIMP Allergy (Severe, Uncoded 04/19/25 01:06) SWELLING shrimp Allergy (Unknown, Uncoded 04/19/25 01:06) facial swelling, rash Medication List - Last Reconciled 04/19/25 by Yissel Johnson MD cholecalciferol (vitamin D3) 1,250 mcg PO QWEEK 3 months ferrous sulfate 325 mg PO DAILY 3 months folic acid 1 mg PO DAILY 30 days naltrexone 50 mg PO DAILY 30 days thiamine HCl (vitamin B1) 100 mg PO DAILY 30 days walker As directed Tobacco use date assessed: 01/04/25 Dental Screening Dental Screen Date: 04/14/25 Did you have a dental visit in the last 12 months?: No Did you have a dental problem in the last 6 months where you did not have access to dental care?: No Was dental information given to patient?: No HPI 3m follow up HPI Details - The patient is a 45-year-old male pres enting with alcohol use disorder. - Alcohol use disorder has been ongoing with previous daily consumption of high-alcohol content beer. - The patient has reduced alcohol intake significantly, now consuming beer occasionally on the weekends. - Naltrexone has been prescribed to help reduce cravings, and the patient rep orts it is effective. - The patient was referred for counselin g to AA support with regards to alcoholism,but has faced scheduling difficulties. - Anemia was identified in previous [employer] work, and the patient was prescribed iron supplements. - Vitamin D and B1 deficiencies were not ed, and supplementation was initiated. - Hypertension was noted with a blood pr essure reading of 148 mmHg systolic. - Liver disease was identified with ultr asound showing coarse liver texture and portal hypertension. - Gallbladder and bile duct dilation wer e observed, with no stones confirmed. [facility] Medical History (Updated 04/14/25 @ 12:07 by Yissel Johnson MD) Vitamin B1 deficiency Vitamin D deficiency Left anterior knee pain Anxiety and depression Alcoholism Serum total bilirubin elevated Elevated liver enzymes Microcytic hypochromic anemia Coarse tremors Polyarthralgia Essential hypertension Surgical History No pertinent past surgical history Family History Sister Diabetes mellitus Social History Housing: Apartment Alcohol intake: current Alcohol intake frequency: 3 or more drinks per day Alcohol type: beer Patient Tobacco Use Status: Never used Tobacco e-Cigarette/Vaping Use: Never Used service: No Current occupational status: unemployed Cognitive needs: No Hearing needs: No Vision needs: Yes Questionnaire PHQ-9 Over the last 2 weeks, how often have you been bothered by any of the following problems? 1. Little interest or pleasure in doing things: several days 2. Feeling down, depressed, or hopeless: several days 3. Trouble falling or staying asleep, or sleeping too much: several days 4. Feeling tired or having little energy: several days 5. Poor appetite or overeating: several days 6. Feeling bad about yourself - or that you are a failure or have let yourself or your family down: more than half the days 7. Trouble concentrating on things, such as reading the newspaper or watching television: several days 8. Moving or speaking so slowly that other people could have noticed. Or the opposite - being so fidgety or restless that you have been moving around a lot more than usual: several days 9. Thoughts that you would be better off or of hurting yourself in some way: not at all Total score: 9 Depression Screening Interpretation: Positive (Declined starting medication, would like to be referred to see a therapist online due to transportation) Depression Screening Done: Yes 28405 - PHQ-9 Billing: Yes Source: Developed by Drs. Osbaldo Dumont, Berenice Bowles, Ad Acosta and colleagues, with an educational ailyn from [employer]. Thrive Questionnaire Date Thrive assessed: 04/08/25 I am a: Parent/Caregiver What is your living situation today?: I have a place to live, but I am worried about losing it in the future Within the past 12 months, did the food you bought not last and you didn't have the money to get more?: Never true Within the past 12 months, did you worry whether your food would run out before you got money to buy more?: Never true Do you have trouble paying for medicines?: No Do you have trouble getting transportation to medical appointments?: No Do you have trouble paying your heating and electricity bill?: No Do you have trouble taking care of your child, family member or friend?: No Do you have trouble with day-to-day activities such as bathing, preparing meals, shopping, managing finances, etc.?: Yes Are you currently unemployed and looking for a job?: No Are you interested in more education?: No Please select the resources that you would like help with: None Currently or been in a relationship where the following occur: I choose not to answer THRIVE Score: 1 AUDIT C Alcohol Use Questionnaire (AUDIT-C) 1. How often do you have a drink containing alcohol?: Monthly or less 2. How many drinks containing alcohol do you have on a typical day when you are drinking?: 1 or 2 3. How often do you have six or more drinks on one occasion?: Less than monthly Total Score: 2 LEE-7 AMB Questionnaire LEE-7 Date LEE - 7 assessed: 04/14/25 Feeling nervous, anxious, or on edge: 1 = Several days Not being able to stop or control worryin = Not at all Worrying too much about different things: 0 = Not at all Trouble relaxin = Not at all Being so restless that it is hard to sit still: 0 = Not at all Becoming easily annoyed or irritable: 0 = Not at all Feeling afraid as if something awful might happen: 0 = Not at all Total LEE-7 score (0-4 normal; 5-9 mild; 10-14 moderate; 15-21 severe): 1 Source: Developed by Drs. Osbaldo Dumont, Berenice Bowles, Ad Acosta and colleagues, with an educational ailyn from [employer]. LEE-7 Assessment Billing LEE-7 Assessment Tool: LEE-7 Assessment 65596 Review of Systems Const Denies fever(s) and Denies headache(s) Eyes Reports no additional complaints ENT Denies dysphagia, Denies ear discharge, Denies headache(s) and Denies mouth lesions Card Denies chest pain, Denies edema and Denies irregular heart rhythm Resp Denies cough GI Denies melena, Denies constipation, Denies dysphagia, Denies heartburn and Denies diarrhea Reports no additional complaints Musc Reports abnormal gait, Reports arthralgias, Denies joint swelling and Reports stiffness Skin/Breast Denies rash Neuro Reports abnormal gait and Denies headache(s) Psych Denies homicidal ideation and Denies suicidal ideation Endo Reports no additional complaints [place]/Lymph Denies easy bleeding and Denies easy bruising Aller/Immun Reports no additional complaints Physical exam (Primary Care) Vital Signs: Last Vital Signs Temp 98.4 F 04/14/25 11:46 Pulse 88 04/14/25 11:46 Resp 16 04/14/25 11:46 BP 130/76 04/14/25 11:46 Pulse Ox 100 04/14/25 11:46 Oxygen Delivery Method Room Air 04/14/25 11:46 BMI result Body Mass Index 25.3 Tobacco/Smoking Status: Tobacco use Status Tobacco use date assessed 01/04/25 04/14/25 11:46 Patient Tobacco Use Status Never used Tobacco 04/14/25 11:46 e-Cigarette/Vaping Use Never Used 04/14/25 11:46 PHQ-9: PHQ-9 Score PHQ-9: Total score 9 04/14/25 12:08 Depression Screening Interpretation: Positive (Declined starting medication, would like to be referred to see a therapist online due to transportation) Thrive Assessment: Date of Thrive Assessment Date Thrive assessed 04/08/25 04/14/25 11:46 Currently or been in a relationship where the following occur: I choose not to answer Const Other: Awake alert oriented x3, accompanied by sister on this visit, ambulatory with date of cane General: no acute distress HENMT Head: Yes normocephalic Ears: hearing grossly normal bilaterally, external ears normal, TM's normal bilaterally and EAC's normal General nose exam: Normal external nose present Face and sinus: Yes face symmetric Mouth: Normal oral and palatal mucosa present, oropharynx normal and moist mucous membranes Eyes Eyelids: Yes eyelid abnormality (External hordeolum right upper lid) Conjunctivae: conjunctival abnormal (Pale palpebral conjunctiva bilateral) and other Neck Neck: Yes full ROM, Yes no lymphadenopathy and Yes supple Thyroid: Thyroid normal Chest Chest palpation & inspection: normal inspection of the chest Resp Other: Clear to auscultation bilaterally Cardio Other: Tachycardic GI Other: Obese with slightly bloated abdomen, normal bowel sounds, nontender to palpatio n, no mass palpated Palpation (GI): Soft to palpation, nontender, no guarding and no masses Auscultation: Hyperactive bowel sounds present General: Yes no CVA tenderness Back/Spine/Pelvis Back: no CVA tenderness and No back tenderness Skin General skin exam: no rashes or lesions noted, no jaundice, no petechiae and no purpura Neuro General: no focal motor deficits Extrem General: Yes full ROM, Yes no joint enlargement, Yes no clubbing, cyanosis or edema and Yes no pedal edema Psych Appearance: grossly normal Mental Status: mental status grossly normal Speech and movement: Normal speech and movement present Attitude: cooperative Coding Level of Care Code Est Pt Prev Care 40-64y(86572) Diagnoses Annual visit for general adult medical examination with abnormal findings Z. Anxiety and depression F41.9; F32.A Alcoholism F10.20 Essential hypertension I10 Vitamin D deficiency E55.9 Microcytic hypochromic anemia D50.9 Elevated liver enzymes R74.8 Hypomagnesemia E83.42 Additional Codes LEE-7 Assessment Billing - LEE-7 Assessment Tool: LEE-7 Assessment 86598 ([id number]) PHQ-9 - 21269 - PHQ-9 Billing: Yes ([id number]) Assessment & Plan Assessment & Plan (1) Annual visit for general adult medical examination with abnormal findings: Code(s): Z00. - Encounter for general adult medical examination with abnormal findings Plan: Will check appropriate labs. Recommended dental visit every 6 months and regular eye exams, at least every 2 years. Take adequate calcium in diet and vitamin-D 3 at 2000 IU per cap once a day, in addition to weight-bearing exercises to help maintain good muscle tone and weight control. Instructed to do self testicular exam check for any mass. He is due now for his colon cancer screening, but patient declined referral for now. Patient does not want to get any vaccination (2) Anxiety and depression: Code(s): F41.9 - Anxiety disorder, unspecified; F32.A - Depression, unspecified Category: Medical Plan: Does not want any medication at present time, declines referral for counseling (3) Alcoholism: Comment: Would give thiamine and MVI Neurology eval HIV,Hepatitis C and syphilis check Naltrexone 50 mg daily Code(s): F10.20 - Alcohol dependence, uncomplicated Category: Medical Plan: Currently on naltrexone,, advised to follow-up with his health benefits specialist, (4) Essential hypertension: Code(s): I10 - Essential (primary) hypertension Category: Medical Plan: Blood pressure at goal of less than 130/80. Continue with current medication. Reinforced importance of following a low sodium diet, getting regular exercise, and lowering stress levels. (5) Vitamin D deficiency: Code(s): E55.9 - Vitamin D deficiency, unspecified Category: Medical Plan: Continue cholecalciferol 94273 units per capsule once weekly (6) Microcytic hypochromic anemia: Code(s): D50.9 - Iron deficiency anemia, unspecified Category: Medical Plan: On ferrous sulfate 325 mg once a day (7) Elevated liver enzymes: Code(s): R74.8 - Abnormal levels of other serum enzymes Category: Medical Plan: Discuss results of his liver ultrasound results previous blood work showing elevated liver enzymes. Strongly advised to completely abstain from any alcohol intake (8) Hypomagnesemia: Code(s): E83.42 - Hypomagnesemia Category: Medical Plan: Will check magnesium level, strongly advised to abstain from alcohol intake Orders: Orders Vitamin D 25-OH Total 04/14/25 D50.9 - Iron deficiency anemia, unspecified, E51.9 - Thiamine deficiency, unspecified, E55.9 - Vitamin D deficiency, unspecified, F10.20 - Alcohol dependence, uncomplicated, F32.A - Depression, unspecified, F41.9 - Anxiety disorder, unspecified, I10 - Essential (primary) hypertension, R74.8 - Abnormal levels of other serum enzymes Vitamin B1 04/14/25 D50.9 - Iron deficiency anemia, unspecified, E51.9 - Thiamine deficiency, unspecified, E55.9 - Vitamin D deficiency, unspecified, F10.20 - Alcohol dependence, uncomplicated, F32.A - Depression, unspecified, F41.9 - Anxiety disorder, unspecified, I10 - Essential (primary) hypertension, R74.8 - Abnormal levels of other serum enzymes Ferritin 04/14/25 D50.9 - Iron deficiency anemia, unspecified, E51.9 - Thiamine deficiency, unspecified, E55.9 - Vitamin D deficiency, unspecified, F10.20 - Alcohol dependence, uncomplicated, F32.A - Depression, unspecified, F41.9 - Anxiety disorder, unspecified, I10 - Essential (primary) hypertension, R74.8 - Abnormal levels of other serum enzymes IRON PROFILE 04/14/25 D50.9 - Iron deficiency anemia, unspecified, E51.9 - Thiamine deficiency, unspecified, E55.9 - Vitamin D deficiency, unspecified, F10.20 - Alcohol dependence, uncomplicated, F32.A - Depression, unspecified, F41.9 - Anxiety disorder, unspecified, I10 - Essential (primary) hypertension, R74.8 - Abnormal levels of other serum enzymes Comprehensive [place]. Panel Fast 04/14/25 D50.9 - Iron deficiency anemia, unspecified, E51.9 - Thiamine deficiency, unspecified, E55.9 - Vitamin D deficiency, unspecified, F10.20 - Alcohol dependence, uncomplicated, F32.A - Depression, unspecified, F41.9 - Anxiety disorder, unspecified, I10 - Essential (primary) hypertension, R74.8 - Abnormal levels of other serum enzymes Vitamin B12 and Folate 04/14/25 D50.9 - Iron deficiency anemia, unspecified, E51.9 - Thiamine deficiency, unspecified, E55.9 - Vitamin D deficiency, unspecified, F10.20 - Alcohol dependence, uncomplicated, F32.A - Depression, unspecified, F41.9 - Anxiety disorder, unspecified, I10 - Essential (primary) hypertension, R74.8 - Abnormal levels of other serum enzymes Complete Blood Count Auto Diff 04/14/25 D50.9 - Iron deficiency anemia, unspecified, E51.9 - Thiamine deficiency, unspecified, E55.9 - Vitamin D deficiency, unspecified, F10.20 - Alcohol dependence, uncomplicated, F32.A - Depression, unspecified, F41.9 - Anxiety disorder, unspecified, I10 - Essential (primary) hypertension, R74.8 - Abnormal levels of other serum enzymes Magnesium 04/14/25 D50.9 - Iron deficiency anemia, unspecified, E51.9 - Thiamine deficiency, unspecified, E55.9 - Vitamin D deficiency, unspecified, F10.20 - Alcohol dependence, uncomplicated, F32.A - Depression, unspecified, F41.9 - Anxiety disorder, unspecified, I10 - Essential (primary) hypertension, R74.8 - Abnormal levels of other serum enzymes
--- OUTSIDE RECORDS SUMMARY | 2025-04-14 12:33 | XMS_ITS | Patient Health Record ---
Author Organization [facility] Address [address] [place] [id number] Care Team Providers Care Java Flex Developer Name Role Phone Alex GALAVIZ, Yissel Primary Care Provider Jose Alberto Guevara Jr Unavailable [phone] Reason For Referral No Information Medications Medication SIG (Take, Route, Frequency, Duration) Notes Start Date End Date Status QUEtiapine Fumarate 25 MG 1 tablet Orall y Once a day Active Ibuprofen 400 MG 1 tablet Orally Thre e times a day Active Aspir-81 81 MG 1 tablet Orally Once a day Active Vitamin D (Ergocalciferol) 57143 UNIT 1 capsule Orally per week Ac tive hydrOXYzine Pamoate 25 MG 1 capsule as n eeded Orally prn Active Omeprazole 20 MG 2 capsules Orally On ce a day Active Metoprolol Succinate ER 25 MG 1 tablet Orally Once a day Active Problems Problem Type SNOMED Code ICD Code Onset Dates Problem Status W/U Status Risk Notes Problem [id number] Elevated liver function tests (R94.5) Active confirmed Plan Of Treatment No Information Insurance Providers Payer Name Payer Address Payer Phone Subscriber Number Group Number Insured Name Patient Relationship to Insured Coverage Start Date Coverage End Date [facility] [employer] [facility] [address] [address] [place], [place] [id number] ISABEL PIÑA Self - patient is the insured Medical (General) History Medical History History ICD Code anxiety/depression hypertension esophageal reflux Surgical History Surgery Date(Month/Year) appendectomy left eye surgery-laser surgery at age 11 s/p blunt trauma growth removed from ear
== END 2025-04-14 12:29 | disposition home or self-care (01) ==
LOC: HO.HMCC 11:40
PROVIDERS: PCP Internal Medicine; Visit Provider Internal Medicine
DX: Z00.01 Encounter for general adult medical examination with abnormal findings (principal); F10.20 Alcohol dependence, uncomplicated; F41.9 Anxiety disorder, unspecified; F32.A Depression, unspecified; I10 Essential (primary) hypertension; E55.9 Vitamin D deficiency, unspecified; D50.9 Iron deficiency anemia, unspecified; R74.8 Abnormal levels of other serum enzymes; E83.42 Hypomagnesemia

== ENCOUNTER → 2025-04-14 11:39 | Outpatient (BNVA) | payer OTHER, SELFPAY | PROVIDERS: PCP Internal Medicine; Visit Provider Internal Medicine | DX: Z00.01 Encounter for general adult medical examination with abnormal findings (principal); E53.8 Deficiency of other specified B group vitamins; F41.9 Anxiety disorder, unspecified; F32.A Depression, unspecified; F10.20 Alcohol dependence, uncomplicated; I10 Essential (primary) hypertension; D50.9 Iron deficiency anemia, unspecified; R74.8 Abnormal levels of other serum enzymes; E83.42 Hypomagnesemia | CPT/HCPCS: 96127; 99396 ==

== ENCOUNTER 2025-04-30 10:32 | Outpatient (AMB) | payer OTHER, SELFPAY ==
--- OUTSIDE RECORDS SUMMARY | 2025-04-30 10:35 | XMS_ITS | Patient Health Record ---
Author Organization [facility] Address [address] [place] [id number] Care Team Providers Care Field Automobile Adjuster Name Role Phone Alex GALAVIZ, Yissel Primary Care Provider Jose Alberto Guevara Jr Unavailable [phone] Reason For Referral No Information Medications Medication SIG (Take, Route, Frequency, Duration) Notes Start Date End Date Status QUEtiapine Fumarate 25 MG 1 tablet Orall y Once a day Active Ibuprofen 400 MG 1 tablet Orally Thre e times a day Active Aspir-81 81 MG 1 tablet Orally Once a day Active Vitamin D (Ergocalciferol) 25119 UNIT 1 capsule Orally per week Ac tive hydrOXYzine Pamoate 25 MG 1 capsule as n eeded Orally prn Active Omeprazole 20 MG 2 capsules Orally On ce a day Active Metoprolol Succinate ER 25 MG 1 tablet Orally Once a day Active Problems Problem Type SNOMED Code ICD Code Onset Dates Problem Status W/U Status Risk Notes Problem [id number] Elevated liver function tests (R94.5) Active confirmed Plan Of Treatment No Information Insurance Providers Payer Name Payer Address Payer Phone Subscriber Number Group Number Insured Name Patient Relationship to Insured Coverage Start Date Coverage End Date [facility] [employer] [facility] [address] [address] [place], [place] [id number] ISABEL PIÑA Self - patient is the insured Medical (General) History Medical History History ICD Code anxiety/depression hypertension esophageal reflux Surgical History Surgery Date(Month/Year) appendectomy left eye surgery-laser surgery at age 11 s/p blunt trauma growth removed from ear
[2025-04-30 10:40] VITALS: BP 122/70; PULSE 78; O2SAT 97; BMI 25.1
--- NOTE | 2025-04-30 10:40 | MHC.OFFVIS ---
Vital Signs 04/30/25 10:40 Height 5 ft 5 in Weight 151 lb BMI 25.1 BP 122/70 Pulse 78 Pulse Oximetry (%) 97 Intake Visit Reasons: MAT Allergies SHRIMP Allergy (Severe, Uncoded 04/30/25 10:41) SWELLING shrimp Allergy (Unknown, Uncoded 04/30/25 10:41) facial swelling, rash HPI Comments Details: He has been doing well. He has no complaints. [facility] Medical History Vitamin B1 deficiency Vitamin D deficiency Left anterior knee pain Anxiety and depression Alcoholism Serum total bilirubin elevated Elevated liver enzymes Microcytic hypochromic anemia Coarse tremors Polyarthralgia Essential hypertension Surgical History No pertinent past surgical history Family History Sister Diabetes mellitus Social History Housing: Apartment Alcohol intake: current Alcohol intake frequency: 3 or more drinks per day Alcohol type: beer Patient Tobacco Use Status: Never used Tobacco e-Cigarette/Vaping Use: Never Used service: No Current occupational status: unemployed Cognitive needs: No Hearing needs: No Vision needs: Yes Review of Systems Const All systems reviewed & are unremarkable except as noted in HPI and below Physical Exam Vital Signs: Last Vital Signs Pulse 78 04/30/25 10:40 BP 122/70 04/30/25 10:40 Pulse Ox 97 04/30/25 10:40 BMI result Body Mass Index 25.1 Const General: cooperative Assessment & Plan Assessment & Plan (1) Anxiety and depression: Comment: He is doing well on naltrexone Code(s): F41.9 - Anxiety disorder, unspecified; F32.A - Depression, unspecified Category: Medical Plan: Continue Naltrexone. See as scheduled. (2) Alcoholism: Comment: Would give thiamine and MVI Neurology eval HIV,Hepatitis C and syphilis check Naltrexone 50 mg daily Code(s): F10.20 - Alcohol dependence, uncomplicated Category: Medical Plan: na Medications: Refilled naltrexone 50 mg PO DAILY 30 tabs 3RF 30 days Coding Level of Care Code Est Pt Level 3 (92328) Diagnoses Anxiety and depression F41.9; F32.A Alcoholism F10.20
== END 2025-04-30 11:00 | disposition home or self-care (01) ==
LOC: HO.HCC 10:32
PROVIDERS: PCP Internal Medicine; Visit Provider Internal Medicine
DX: F41.9 Anxiety disorder, unspecified (principal); F32.A Depression, unspecified; F10.20 Alcohol dependence, uncomplicated
CPT/HCPCS: 99213

== ENCOUNTER → 2025-04-30 10:32 | Outpatient (BNVA) | payer OTHER, SELFPAY | PROVIDERS: PCP Internal Medicine; Visit Provider Internal Medicine | DX: F10.20 Alcohol dependence, uncomplicated (principal); F41.9 Anxiety disorder, unspecified; F32.A Depression, unspecified | CPT/HCPCS: 99212 ==

== ENCOUNTER 2025-09-01 14:00 | Outpatient (REF) | payer OTHER, SELFPAY ==
[2025-09-01 15:58] LABS: Hematocrit 30.5 % (42.0-52.0); Hemoglobin 9.4 g/dl (14.0-18.0); Mean Corpuscular HGB Conc 30.8 g/dl (31.0-36.0); Mean Corpuscular Hemoglobin 25.1 pg (27.0-33.0); Mean Corpuscular Volume 81.3 fL (80.0-98.0); NRBC Abs Auto 0.000 X10*3/uL (0.0-0.012); NRBC Pct Auto 0.0 /100WBC (0.0-0.2); Red Blood Count 3.75 X10*6/uL (4.60-5.80); White Blood Count 3.5 X10*3/uL (4.8-10.8)
[2025-09-01 16:06] LABS: INTERNATIONAL NORM RATIO 1.3 (0.9-1.1); Prothrombin Time 15.6 SEC (11.2-13.5)
[2025-09-01 16:50] LABS: Alanine Aminotransferase 42 U/L (0-40); Albumin Level 3.5 g/dL (3.5-5.0); Alkaline Phosphatase 114 U/L (39-117); Anion Gap 12 (12-20); Aspartate Amino Transferase 110 U/L (5-37); Blood Urea Nitrogen 7 mg/dL (9-16); Calcium 8.4 mg/dL (8.4-10.2); Carbon Dioxide 29 mmol/L (22-29); Chloride 106 mmol/L (96-108); Estimated Glomerular Filt Rate > 60; Magnesium 1.2 mg/dL (1.6-2.6); Potassium 3.7 mmol/L (3.3-5.1); Sodium 143 mmol/L (135-145); Total Protein 8.2 g/dL (6.5-8.0)
[2025-09-01 18:27] LABS: Platelet Count 91 X10*3/uL (160-400)
== END 2025-09-01 14:01 | disposition home or self-care (01) ==
LOC: HO.LAB 14:00
PROVIDERS: PCP Internal Medicine; Visit Provider Internal Medicine
DX: R79.89 Other specified abnormal findings of blood chemistry (principal); K74.60 Unspecified cirrhosis of liver; D50.9 Iron deficiency anemia, unspecified; D69.6 Thrombocytopenia, unspecified; F10.20 Alcohol dependence, uncomplicated
CPT/HCPCS: 36415; 80053; 80321; 83735; 84425; 85027; 85610; 99202

== ENCOUNTER 2025-09-01 14:00 | Outpatient (AMB) | payer OTHER, SELFPAY ==
--- NOTE | 2025-09-01 14:11 | A.OFFVIS_ITS ---
Vital Signs 09/01/25 14:12 Height 5 ft 5 in Weight 149 lb 14.629 oz BMI 24.9 BP 142/77 H Blood Pressure Location Lt brachial Position Sitting Pulse 105 H Intake Visit Reasons: Elevated LFTs/Anemia/Alcoholism Intake Note: Jagdeep presents in the ofice as a new patient for elevated LFTs, Anemia and Alcoholism CC: States that he has pains in the left hand, lower back and the left leg - states that the pains are more on the left side of his body. Allergies SHRIMP Allergy (Severe, Uncoded 09/01/25 14:13) SWELLING shrimp Allergy (Unknown, Uncoded 09/01/25 14:13) facial swelling, rash HPI Comments Details: The patient is a 45 year old male with PMH of etOH use disorder that has led to cirrhosis who is here to establish care. Here with his sister. Has known hx of heavy etOH use ongoing x 7-10 years that has led to cirrhosis. Pt with pos hx of ER admissions for etOH use and also reports prev detox admission with relapse within a few months. The patient's alcohol use began around age 21-22, with heavy drinking starting about 7 years ago. He reports drinking three to four 24-ounce beers with 8% alcohol content daily, with his last drink being one day ago. He was prescribed naltrexone and was abstinent for a couple of months but relapsed and is now non- adherent with the medication. He missed his last follow-up appointment with Dr Rosas at [facility] in June. Labs reviewed - with iron deficiency anemia. Pt does not report any abdominal pain, rectal bleeding. No hx of colonoscopy. Low platelets very suspicious for portal HTN. No fam hx of etOH use or liver disease. No fam hx of CRC. Mat aunt with pancreatic ca. --- Pt was informed and consented to the use of ambient scribe for this encounter. --- [facility] Medical History Vitamin B1 deficiency Vitamin D deficiency Left anterior knee pain Anxiety and depression Alcoholism Serum total bilirubin elevated Elevated liver enzymes Microcytic hypochromic anemia Coarse tremors Polyarthralgia Essential hypertension Surgical History No pertinent past surgical history Family History Sister Diabetes mellitus Social History Housing: Apartment Alcohol intake: current Alcohol intake frequency: 3 or more drinks per day Alcohol type: beer Patient Tobacco Use Status: Never used Tobacco e-Cigarette/Vaping Use: Never Used service: No Current occupational status: unemployed Cognitive needs: No Hearing needs: No Vision needs: Yes Review of Systems Narrative Review of Systems Const All systems reviewed & are unremarkable except as noted in HPI and below Physical Exam Vital Signs: Last Vital Signs Pulse 105 H 09/01/25 14:12 BP 142/77 H 09/01/25 14:12 BMI result Body Mass Index 24.9 Gen Appear: undernourished HEENT: No scleral icterus, Abd: soft, nontender, nondistended, Ext: No peripheral edema bilaterally Neuro: A/Ox3, no asterixis but fine tremors + Results Reviewed Results Reviewed: Laboratory Tests 09/08/18 04/29/24 01/14/25 08:29 19:05 09:20 Hgb 9.9 L Hct 31.0 L Plt Count 80 L Sodium 133 L Creatinine 0.69 Iron 27 L Total Bilirubin 2.3 H AST 105 H ALT 35 Alkaline Phosphatase 61 Total Protein 9.2 H 25-OH Vitamin D Total 7.0 L Ethyl Alcohol 413 H* Hep Bs Antigen NEGATIVE Hep B Core Total Ab NONREACTIVE Hepatitis C Ab (EIA) NONREACTIVE US Abd 03/2025: 1. Abnormal hepatofugal flow of the main portal vein, concerning for portal hypertension, similar finding was noted on prior ultrasound as well. 2. Mildly echogenic liver parenchyma with coarse echotexture, likely related to parenchymal liver disease, no focal lesion is seen. 3. Small gallstone, no acute inflammation. Assessment & Plan Assessment & Plan (1) Cirrhosis of liver: Code(s): K74.60 - Unspecified cirrhosis of liver Category: Medical (2) Iron deficiency anemia: Code(s): D50.9 - Iron deficiency anemia, unspecified Category: Medical (3) Thrombocytopenia: Code(s): D69.6 - Thrombocytopenia, unspecified Category: Medical (4) Alcoholism: Code(s): F10.20 - Alcohol dependence, uncomplicated Category: Medical Plan Assessment and Plan 1. EtOH use disorder 2. Cirrhosis with [facility] Has ongoing etOH use. Nonadherent with pharmacotherapy. Discussed in detail that primary goal is to achieve complete alcohol abstinence to prevent further progression of liver disease and complications, such as esophageal varices, HE, ascites, HCC etc. Plan: - Strict alcohol abstinence - MELD labs today - US Abd q6m for HCC screening, ordered to be done next month - EGD for esophageal varices screening - Counseled on sobriety from alcohol. - Will reach out to Dr Rosas for naltrexone alternative. - Cont [facility] visits. Other resources like licensed substance use counselor or AA meetings discussed pt declined. 3. Iron deficiency anemia The patient is noted to have iron deficiency anemia on labs. Asymptomatic. Plan: - Schedule colonoscopy at the same time as EGD. - PEG prep Rxed and written handout provided. Follow upi n 2 months. Orders: Orders Prothrombin Time INR Today K74.60 - Unspecified cirrhosis of liver Magnesium Today F10.20 - Alcohol dependence, uncomplicated Phosphatidylethanol, Blood Today F10.20 - Alcohol dependence, uncomplicated Complete Blood Count no Diff Today K74.60 - Unspecified cirrhosis of liver Comprehensive Met. Panel Today K74.60 - Unspecified cirrhosis of liver US abdomen complete 1 Month K74.60 - Unspecified cirrhosis of liver Vitamin B1 Today F10.20 - Alcohol dependence, uncomplicated Referrals GI Procedure Notification D50.9 - Iron deficiency anemia, unspecified, K74.60 - Unspecified cirrhosis of liver Patient Instructions: - It is critical that you stop drinking all alcohol completely. - Take your naltrexone medication every day on a regular schedule to help reduce your cravings for alcohol. - [facility] for [facility] with alcohol cessation. - Please get your blood work done today. - You will need an ultrasound of your liver every 6 months to screen for liver cancer. Your next one is due in September. - Our office will call you to schedule an upper endoscopy and a colonoscopy. - You have a follow-up appointment in this office in two months. Coding Level of Care Code New Pt Level 5 (63853) Add On Problem Visit Only Diagnoses Cirrhosis of liver K74.60 Iron deficiency anemia D50.9 Thrombocytopenia D69.6 Alcoholism F10.20
[2025-09-01 14:12] VITALS: BP 142/77; PULSE 105; BMI 24.9
--- OUTSIDE RECORDS SUMMARY | 2025-09-01 21:50 | XMS_ITS | Patient Health Record ---
Author Organization [facility] Address [address] [place] [id number] Care Team Providers Care Body Press Operator Name Role Phone Alex GALAVIZ, Yissel Primary Care Provider Jose Alberto Guevara Jr Unavailable Reason For Referral No Information Medications Medication SIG (Take, Route, Frequency, Duration) Notes Start Date End Date Status QUEtiapine Fumarate 25 MG Tablet 1 tablet Orally Once a day Active Ibuprofen 400 MG Tablet 1 tablet Orally Three times a day Active Aspir-81 81 MG Tablet Delayed Release 1 tablet Orally Once a day Active Vitamin D (Ergocalciferol) 25675 UNIT Capsule 1 capsule Orally per week Active hydrOXYzine Pamoate 25 MG Capsule 1 capsule as needed Orally prn Active Omeprazole 20 MG Capsule Delayed Release 2 capsules Orally Once a day Active Metoprolol Succinate ER 25 MG Tablet Extended Release 24 Hour 1 tablet Orally Once a day Active Social History Social History Additional Details Category Social Info Options Details Miscellaneous: Marital status: single Occupation: unemployed Problems Problem Type SNOMED Code ICD Code Onset Dates Problem Status W/U Status Risk Notes Problem Elevated liver enzymes level ([id number]) Elevated liver function tests (R94.5) Active confirmed Plan Of Treatment No Information Insurance Providers Payer Name Payer Address Payer Phone Subscriber Number Group Number Insured Name Patient Relationship to Insured Coverage Start Date Coverage End Date [facility] [address] [address] [place], [place] [id number] ISABEL PIÑA Self - patient is the insured Medical (General) History Medical History History ICD Code anxiety/depression hypertension esophageal reflux Surgical History Surgery Date(Month/Year) appendectomy left eye surgery-laser surgery at age 11 s/p blunt trauma growth removed from ear
== END 2025-09-01 14:54 | disposition home or self-care (01) ==
LOC: HO.HGI 14:01
PROVIDERS: PCP Internal Medicine; Visit Provider Internal Medicine
DX: K70.30 Alcoholic cirrhosis of liver without ascites (principal); F10.20 Alcohol dependence, uncomplicated; D50.9 Iron deficiency anemia, unspecified; D69.6 Thrombocytopenia, unspecified
CPT/HCPCS: 99204